=== PATIENT | female | born 1955 | race Caucasian/White ===

== ENCOUNTER 2018-06-30 16:24 | Emergency (ER) | payer BC ==
[2018-06-30 17:06] LABS: Absolute Lymphocytes (CBC) 1.6 K/uL (0.7-4.9); Absolute Monocytes 0.6 K/uL (0.1-1.3); Absolute Neutrophil 5.5 K/uL (1.8-8.0); Basophils % 0.8 % (0-1.3); Eosinophils % 1.9 % (0-4.4); Lymphocytes % 19.8 % (15.3-44.8); MPV 8.7 fL (7.6-11.3); RBC Red Blood Cell Count 4.22 M/uL (3.86-4.86)
[2018-06-30] MEDS ORDERED: NA CHLORIDE 0.9% 1,000 ML ONE ×2 (17:07→18:48)
[2018-06-30 17:24] LABS: ALT/SGPT 28 U/L (12-78); AST/SGOT 22 U/L (15-37); Albumin 4.4 g/dL (3.4-5.0); Alkaline Phosphatase 82 U/L (45-117); BUN Blood Urea Nitrogen 33 mg/dL (7-18); Bicarbonate 24 mmol/L (21-32); Bilirubin Direct 0.1 mg/dL (0-0.2); Bilirubin Total 0.4 mg/dL (0.2-1.0); Glucose Level 96 mg/dL (74-106); Lipase 187 U/L (73-393); Potassium 4.1 mmol/L (3.5-5.1); Protein, Total 7.7 g/dL (6.4-8.2); Sodium Level 140 mmol/L (136-145); Troponin (Emerg Dept Use Only) < 0.02 ng/mL (0.0-0.045)
[2018-06-30 18:05] LABS: Urine Blood TRACE (NEG); Urine Glucose NEGATIVE (NEG); Urine Protein 1+ (NEG); Urine Specific Gravity 1.015 (1.005-1.030); Urine pH 5.5 (5.0-7.0)
[2018-06-30 18:14] LABS: Urine Bacteria <20 /HPF (<20); Urine RBC <5 /HPF (NONE SEEN)
[2018-06-30 18:15] LABS: Calcium Oxalate Crystals- Ur FEW (NONE SEEN); Urine Culture Reflex Order REFLEXED
--- NOTE | 2018-06-30 18:37 | ER ---
Nurse's Notes [facility] Name: Gloria Booker Age: 62 yrs Sex: Female : 1955 Arrival Date: 06/30/2018 Time: 16:26 Bed 6 Private MD: Sanchez Humphreys Diagnosis: Dehydration;Urinary tract infection, site not specified Presentation: 06/30 16:33 Presenting complaint: Patient states: i was going to work today when i felt light hj headed, nauseous and shirt of breath, like im about to faint; denies fall; denies chest pain, denies abd pain;. Transition of care: patient was not received from another setting of care. Onset of symptoms was June 30, 2018. Risk Assessment: Do you want to hurt yourself or someone else? Patient reports no desire to harm self or others. Initial Sepsis Screen: Does the patient meet any 2 criteria? No. Patient's initial sepsis screen is negative. Does the patient have a suspected source of infection? No. Patient's initial sepsis screen is negative. Care prior to arrival: None. 16:33 Method Of Arrival: Ambulatory 16:33 Acuity: SHARON 3 hj Triage Assessment: 16:36 General: Appears in no apparent distress. uncomfortable, Behavior is calm, cooperative, hj appropriate for age. Respiratory: Reports shortness of breath Onset: The symptoms/episode began/occurred today, the patient has mild shortness of breath. Historical: - Allergies: 16:36 Sulfa; hj - Home Meds: 16:36 lisinopril 40 mg oral tab 1 tab once daily [Active]; losartan 50 mg oral tab 1 tab once hj daily [Active]; - PMHx: 16:36 Arthritis; Hypertension; hj - PSHx: 16:36 Appendectomy; rotator cuff; hj - Immunization history:: Adult Immunizations up to date. - Social history:: Smoking status: Patient/guardian denies using tobacco, Patient/guardian denies using alcohol. - Ebola Screening: : Patient negative for fever greater than or equal to 101.5 degrees Fahrenheit, and additional compatible Ebola Virus Disease symptoms Patient denies exposure to infectious person Patient denies travel to an Ebola-affected area in the 21 days before illness onset. - Family history:: not pertinent. - Hospitalizations: : No recent hospitalization is reported. Screenin:36 Abuse screen: Denies threats or abuse. Denies injuries from another. Nutritional hj screening: No deficits noted. Tuberculosis screening: No symptoms or risk factors identified. Fall Risk None identified. Assessment: 16:36 Pain: Denies pain. Cardiovascular: Rhythm is. Respiratory: Airway is patent Respiratory hj effort is even, unlabored, Respiratory pattern is regular, symmetrical, Breath sounds are clear. 16:36 General: Appears in no apparent distress. uncomfortable, Behavior is calm, cooperative, hj appropriate for age. Neuro: Level of Consciousness is awake, alert, obeys commands, Oriented to person, place, time, situation, Appropriate for age. GI: No signs and/or symptoms were reported involving the gastrointestinal system. : No signs and/or symptoms were reported regarding the genitourinary system. EENT: No signs and/or symptoms were reported regarding the EENT system. Derm: No signs and/or symptoms reported regarding the dermatologic system. Musculoskeletal: No signs and/or symptoms reported regarding the musculoskeletal system. 17:43 Reassessment: Patient and/or family updated on plan of care and expected duration. Pain hj level reassessed. Patient is alert, oriented x 3, equal unlabored respirations, skin warm/dry/pink. awaiting results and POC:. 19:05 Reassessment: awaiting for the fluid infusion to consume, then discharge. General: rr5 Appears in no apparent distress. comfortable, Behavior is calm, cooperative, appropriate for age. Neuro: Level of Consciousness is awake, alert, obeys commands, Oriented to person, place, time. Cardiovascular: Capillary refill < 3 seconds Patient's skin is warm and dry. Respiratory: Airway is patent Respiratory effort is even, unlabored, Respiratory pattern is regular, symmetrical. 20:00 Reassessment: Patient appears in no apparent distress at this time. Patient is alert, rr5 oriented x 3, equal unlabored respirations, skin warm/dry/pink. Patient states feeling better. 20:40 Reassessment: Patient appears in no apparent distress at this time. Patient is alert, rr5 oriented x 3, equal unlabored respirations, skin warm/dry/pink. discharge instruction given and explained without complaints made. Vital Signs: 16:37 BP 114 / 63; Pulse 82; Resp 18; Temp 98.0(TE); Pulse Ox 100% on R/A; Weight 129.27 kg; hj Height 5 ft. 6 in. (167.64 cm); Pain 0/10; 17:03 BP 108 / 92; Pulse 85; Resp 18; Pulse Ox 100% on R/A; hj 17:44 BP 100 / 43; Pulse 75; Resp 18; Pulse Ox 100% on R/A; hj 18:01 BP 136 / 67; rn 18:34 BP 123 / 52; Pulse 77; Resp 18; Pulse Ox 100% on R/A; hj 19:05 BP 121 / 62; Pulse 75; Resp 17; Temp 98.1; Pulse Ox 99% on R/A; Pain 0/10; rr5 20:00 BP 133 / 65; Pulse 70; Resp 16; Temp 97.5; Pulse Ox 99% ; Pain 0/10; rr5 20:30 BP 147 / 75; Pulse 79; Resp 17; Temp 97.6; Pulse Ox 100% on R/A; rr5 16:37 Body Mass Index 46.00 (129.27 kg, 167.64 cm) ED Course: 16:26 Patient arrived in ED. as 16:26 Sanchez Humphreys MD is Private Physician. as 16:28 Giorgi Jones RN is Primary Nurse. hj 16:31 Milo Méndez MD is Attending Physician. rn 16:34 Triage completed. hj 16:37 Arm band placed on right wrist. hj 16:37 Patient has correct armband on for positive identification. Placed in gown. Bed in low hj position. Call light in reach. Side rails up X 1. 16:45 Initial lab(s) drawn, by sc, sent to lab. Flu and/or RSV swab sent to lab. Inserted sg saline lock: 20 gauge in right antecubital area, using aseptic technique. Blood collected. 17:00 EKG done, by geospatial technician. reviewed by Milo Méndez MD. sm3 18:35 Sanchez Humphreys MD is Referral Physician. rn 18:55 Inserted saline lock: 20 gauge in right antecubital area, using aseptic technique. hb 20:47 No provider procedures requiring assistance completed. IV discontinued, intact, rr5 bleeding controlled, No redness/swelling at site. Pressure dressing applied. Administered Medications: 16:55 Drug: NS 0.9% 1000 ml Route: IV; Rate: 1000 ml; Site: right antecubital; 18:33 Drug: NS 0.9% 1000 ml Route: IV; Rate: 1000 ml; Site: right antecubital; 20:30 Follow up: Response: No adverse reaction; IV Status: Completed infusion; IV Intake: rr5 1000ml 18:41 Drug: Macrobid 100 mg Route: PO; 20:30 Follow up: Response: No adverse reaction rr5 Intake: 20:30 IV: 1000ml; Total: 1000ml. rr5 Outcome: 18:36 Discharge ordered by . rn 20:47 Discharged to home ambulatory. rr5 20:47 Condition: stable 20:47 Discharge instructions given to patient, Instructed on discharge instructions, follow up and referral plans. medication usage, Demonstrated understanding of instructions, follow-up care, medications, Prescriptions given X 1. 20:49 Patient left the ED. rr5 Signatures: Jayant Coffey RN FRANCE Laura Hays Roman, MD MD rn Joaquin, Henry, RN RN Naya Orlando RN RN Jaye Piper [facility] Naldo Dhillon RN RN rr5 Corrections: (The following items were deleted from the chart) 17:06 17:03 BP 124 / 76; Pulse 85bpm; Resp 18bpm; Pulse Ox 100% RA; [facility]
--- NOTE | 2018-06-30 18:38 | EDPHYS ---
Physician Documentation [facility] Name: Gloria Booker Age: 62 yrs Sex: Female : 1955 Arrival Date: 06/30/2018 Time: 16:26 Bed 6 Private MD: Sanchez Humphreys ED Physician Milo Méndez HPI: 06/30 16:45 This 62 yrs old Female presents to ER via Ambulatory with complaints of rn Shortness Of Breath, Nausea, Weakness. 16:45 Reports generalized weakness and fatigue, began around 11AM today, non-focal, has been rn doing keto diet for 1 week, feels nausea, but no vomiting/diarrhea/chest pain/cough/fever. Reports increased urination, but no pain. [place] a little better after eating nuggets and lemonade. . Onset: The symptoms/episode began/occurred at 11:00. Severity of symptoms: At their worst the symptoms were moderate in the emergency department the symptoms have improved. The patient has not experienced similar symptoms in the past. The patient has not recently seen a physician. Historical: - Allergies: 16:36 Sulfa; hj - Home Meds: 16:36 lisinopril 40 mg oral tab 1 tab once daily [Active]; losartan 50 mg oral tab 1 tab once hj daily [Active]; - PMHx: 16:36 Arthritis; Hypertension; hj - PSHx: 16:36 Appendectomy; rotator cuff; hj - Immunization history:: Adult Immunizations up to date. - Social history:: Smoking status: Patient/guardian denies using tobacco, Patient/guardian denies using alcohol. - Ebola Screening: : Patient negative for fever greater than or equal to 101.5 degrees Fahrenheit, and additional compatible Ebola Virus Disease symptoms Patient denies exposure to infectious person Patient denies travel to an Ebola-affected area in the 21 days before illness onset. - Family history:: not pertinent. - Hospitalizations: : No recent hospitalization is reported. ROS: 16:45 Constitutional: Negative for fever, chills, and weight loss, Eyes: Negative for injury, rn pain, redness, and discharge, ENT: Negative for injury, pain, and discharge, Neck: Negative for injury, pain, and swelling, Cardiovascular: Negative for chest pain, palpitations, and edema, Respiratory: Negative for shortness of breath, cough, wheezing, and pleuritic chest pain, Abdomen/GI: Negative for abdominal pain, vomiting, diarrhea, and constipation, : Negative for injury, bleeding, discharge, and swelling, MS/Extremity: Negative for injury and deformity, Skin: Negative for injury, rash, and discoloration, Neuro: Negative for headache, numbness, tingling, and seizure. Exam: 16:45 Constitutional: This is a well developed, well nourished patient who is awake, alert, rn and in no acute distress. Head/Face: Normocephalic, atraumatic. Eyes: Pupils equal round and reactive to light, extra-ocular motions intact. Lids and lashes normal. Conjunctiva and sclera are non-icteric and not injected. Cornea within normal limits. Periorbital areas with no swelling, redness, or edema. ENT: dry MM Cardiovascular: Regular rate and rhythm. No pulse deficits. Respiratory: Lungs have equal breath sounds bilaterally, clear to auscultation. No increased work of breathing, no retractions or nasal flaring. Abdomen/GI: soft, non-tender MS/ Extremity: Pulses equal, no cyanosis. Neurovascular intact. Full, normal range of motion. Equal circumference. Neuro: Awake and alert, GCS 15, oriented to person, place, time, and situation. Cranial nerves II-XII grossly intact. Motor strength 5/5 in all extremities. Sensory grossly intact. Cerebellar exam normal. 18:33 ECG was reviewed by the Attending Physician. rn Vital Signs: 16:37 BP 114 / 63; Pulse 82; Resp 18; Temp 98.0(TE); Pulse Ox 100% on R/A; Weight 129.27 kg; hj Height 5 ft. 6 in. (167.64 cm); Pain 0/10; 17:03 BP 108 / 92; Pulse 85; Resp 18; Pulse Ox 100% on R/A; hj 17:44 BP 100 / 43; Pulse 75; Resp 18; Pulse Ox 100% on R/A; hj 18:01 BP 136 / 67; rn 18:34 BP 123 / 52; Pulse 77; Resp 18; Pulse Ox 100% on R/A; hj 19:05 BP 121 / 62; Pulse 75; Resp 17; Temp 98.1; Pulse Ox 99% on R/A; Pain 0/10; rr5 20:00 BP 133 / 65; Pulse 70; Resp 16; Temp 97.5; Pulse Ox 99% ; Pain 0/10; rr5 20:30 BP 147 / 75; Pulse 79; Resp 17; Temp 97.6; Pulse Ox 100% on R/A; rr5 16:37 Body Mass Index 46.00 (129.27 kg, 167.64 cm) hj MDM: 16:31 Patient medically screened. rn 18:33 Differential Diagnosis Dehydration, adverse effect of keto diet, UTI. Data reviewed: rn vital signs, nurses notes, lab test result(s), EKG, and as a result, I will discharge patient. 18:34 Response to treatment: the patient's symptoms have markedly improved after treatment, rn and as a result, I will discharge patient. ED course: Ambulatory with improvement of symptoms, will treat for UTI given increased urination and 1+ leukocytes with 5-10 WBC, recommended oral rehydration at home given good response to fluids, and f/u closely within the week for repeat bloodwork by her PCP. Could be due to newly acquired keto diet. She is insistent that she remains on keto diet. . 06/30 16:44 Order name: CBC with Diff; Complete Time: 17:14 rn 06/30 16:44 Order name: Basic Metabolic Panel; Complete Time: 18:01 rn 06/30 16:44 Order name: Urine Microscopic Only; Complete Time: 18:17 rn 06/30 16:44 Order name: Ketone, Serum; Complete Time: 18:01 rn 06/30 16:44 Order name: Troponin (emerg Dept Use Only); Complete Time: 18:01 rn 06/30 16:44 Order name: LFT's; Complete Time: 18:01 rn 06/30 16:44 Order name: EKG; Complete Time: 16:45 rn 06/30 16:44 Order name: Lipase; Complete Time: 18:01 rn 06/30 16:44 Order name: Flu; Complete Time: 17:38 rn 06/30 18:02 Order name: Urine Dipstick--Ancillary (enter results); Complete Time: 18:17 bd 06/30 18:17 Order name: Urine Culture EDWY 06/30 16:44 Order name: IV Start; Complete Time: 17:02 rn 06/30 16:44 Order name: Urine Dipstick-Ancillary (obtain specimen); Complete Time: 18:18 rn 06/30 16:44 Order name: EKG - Nurse/Tech; Complete Time: 17:02 rn EC:33 Rate is 71 beats/min. Rhythm is regular. QRS [place] is Normal. CT interval is normal. QRS rn interval is normal. QT interval is normal. No Q waves. T waves are Normal. No ST changes noted. Clinical impression: Normal ECG. Interpreted by me. Reviewed by me. Administered Medications: 16:55 Drug: NS 0.9% 1000 ml Route: IV; Rate: 1000 ml; Site: right antecubital; hj 18:33 Drug: NS 0.9% 1000 ml Route: IV; Rate: 1000 ml; Site: right antecubital; hj 20:30 Follow up: Response: No adverse reaction; IV Status: Completed infusion; IV Intake: rr5 1000ml 18:41 Drug: Macrobid 100 mg Route: PO; hj 20:30 Follow up: Response: No adverse reaction rr5 Disposition: 06/30/18 18:36 Discharged to Home. Impression: Dehydration, Urinary tract infection, site not specified. - Condition is Stable. - Discharge Instructions: Dehydration, Adult, Urinary Tract Infection, Adult, Acute Kidney Injury, Adult. - Prescriptions for Macrobid 100 mg Oral Capsule - take 1 capsule by ORAL route every 12 hours for 7 days; 14 capsule. - Medication Reconciliation Form, Thank You Letter, Antibiotic Education, Prescription Opioid Use form. - Follow up: Sanchez Humphreys MD; When: 5 - 6 days; Reason: Recheck today's complaints, Re-evaluation by your physician. - Problem is new. - Symptoms have improved. Signatures: Dispatcher [employer] EDMS Milo Méndez MD MD rn Joaquin, Henry, RN RN hj Roque, Raymond RN RN rr5 Corrections: (The following items were deleted from the chart) 20:49 18:36 06/30/2018 18:36 Discharged to Home. Impression: Dehydration; Urinary tract rr5 infection, site not specified. Condition is Stable. Forms are Medication Reconciliation Form, Thank You Letter, Antibiotic Education, Prescription Opioid Use. Follow up: Sanchez Humphreys; When: 5 - 6 days; Reason: Recheck today's complaints, Re-evaluation by your physician. Problem is new. Symptoms have improved. rn
[2018-06-30] MEDS ORDERED: NITROFURAN MACRO 100 MG CAP PO ONE (18:55)
[2018-06-30 21:31] VITALS: BP 147/75; TEMP 97.6; O2SAT 100
--- NOTE | 2018-07-01 06:18 | EKG ---
Test Date: 2018-06-30 Test Time: 17:00:52 Referral Coordinator: ZEESHAN MEASUREMENT RESULTS: Intervals: Rate: 71 WY: 150 QRSD: 92 QT: 428 QTc: 465 [place]: P: 18 WY: 150 QRS: 3 T: 9 INTERPRETIVE STATEMENTS: Normal sinus rhythm with sinus arrhythmia Normal ECG Compared to ECG 04/13/2016 13:39:07 Left ventricular hypertrophy no longer present Electronically Signed On 07-01-18 06:17:22 CDT by London Hunter
== END 2018-06-30 20:49 | disposition home or self-care (01) ==
LOC: ER 16:24
DX: E86.0 Dehydration (principal); N39.0 Urinary tract infection, site not specified; I10 Essential (primary) hypertension; Z88.2 Allergy status to sulfonamides
CPT/HCPCS: 36415; 80048; 80076; 81003; 81015; 82010; 83690; 84484; 85025; 87077; 87086; 87088; 87186; 87804; 93005; 96360; 96361; 99284; J7030

== ENCOUNTER 2018-07-17 19:27 | Observation (INO) | payer BC ==
--- NOTE | 2018-07-17 20:12 | RAD REPORT ---
EXAM DESCRIPTION: RAD - Chest Single View - 07/17/2018 7:56 pm CLINICAL HISTORY: CHEST PAIN Chest pain. COMPARISON: CHEST PA AND LAT 2 VIEW dated 04/03/2011; CHEST PA AND LAT 2 VIEW dated 09/18/2008 FINDINGS: Portable technique limits examination quality. The lungs are grossly clear. The heart is normal in size. No displaced fractures. IMPRESSION: No acute intrathoracic process suspected.
[2018-07-17 20:16] LABS: Absolute Lymphocytes (CBC) 2.1 K/uL (0.7-4.9); Absolute Monocytes 0.5 K/uL (0.1-1.3); Absolute Neutrophil 3.5 K/uL (1.8-8.0); Basophils % 0.8 % (0-1.3); Eosinophils % 4.4 % (0-4.4); Hematocrit 38.2 % (36.0-45.0); Lymphocytes % 33.3 % (15.3-44.8); MPV 9.4 fL (7.6-11.3); Monocytes % 7.5 % (3.3-12.3)
[2018-07-17 20:20] LABS: Protime INR 1.18
[2018-07-17 20:38] LABS: ALT/SGPT 28 U/L (12-78); AST/SGOT 20 U/L (15-37); Alkaline Phosphatase 70 U/L (45-117); BUN Blood Urea Nitrogen 30 mg/dL (7-18); Bicarbonate 23 mmol/L (21-32); Bilirubin Direct 0.1 mg/dL (0-0.2); Bilirubin Total 0.3 mg/dL (0.2-1.0); Glucose Level 78 mg/dL (74-106); Magnesium 2.2 mg/dL (1.8-2.4); NT PRO-BNP 42 pg/mL (<125); Protein, Total 7.5 g/dL (6.4-8.2); Sodium Level 143 mmol/L (136-145); Troponin (Emerg Dept Use Only) < 0.02 ng/mL (0.0-0.045)
[2018-07-17] MEDS ORDERED: ONDANSETRON 4 MG/2 ML VIAL ONE (22:10)
[2018-07-17] MEDS ORDERED: MORPHINE 4 MG/ML SYR ONE (22:10)
--- NOTE | 2018-07-17 23:20 | EDPHYS ---
Physician Documentation [facility] Name: Gloria Booker Age: 62 yrs Sex: Female : 1955 Arrival Date: 07/17/2018 Time: 19:35 Bed 27 Private MD: ED Physician Gera Harp HPI: 07/17 23:09 This 62 yrs old Female presents to ER via Ambulatory with complaints of Arm tw4 Pain. 23:11 The patient or guardian reports chest pain that is located primarily in the anterior tw4 chest wall, left. Onset: today. The pain radiates to the left arm. Associated signs and symptoms: The patient has no apparent associated signs or symptoms. The chest pain is described as dull. Duration: The patient or guardian reports a single episode. Modifying factors: The symptoms are alleviated by nothing. the symptoms are aggravated by nothing. Severity of pain: At its worst the pain was moderate in the emergency department the pain is unchanged. The patient has not experienced similar symptoms in the past. Historical: - Allergies: 19:37 Sulfa; aj - Home Meds: 07/18 00:27 lisinopril 40 mg Oral tab 1 tab once daily for Hypertension [Active]; losartan 50 mg jd3 Oral tab 1 tab once daily [Active]; - PMHx: 00:27 Arthritis; Hypertension; jd3 - PSHx: 00:27 Appendectomy; rotator cuff; jd3 - Immunization history:: Adult Immunizations up to date. - Social history:: Smoking status: unknown. - Ebola Screening: : Patient negative for fever greater than or equal to 101.5 degrees Fahrenheit, and additional compatible Ebola Virus Disease symptoms. ROS: 07/17 23:11 Constitutional: Negative for fever, chills, and weight loss, Eyes: Negative for injury, tw4 pain, redness, and discharge, Respiratory: Negative for shortness of breath, cough, wheezing, and pleuritic chest pain, Abdomen/GI: Negative for abdominal pain, nausea, vomiting, diarrhea, and constipation, Back: Negative for injury and pain, MS/Extremity: Negative for injury and deformity, Skin: Negative for injury, rash, and discoloration. Cardiovascular: Positive for chest pain, Negative for edema, orthopnea, palpitations, paroxysmal nocturnal dyspnea. Exam: 23:11 Constitutional: This is a well developed, well nourished patient who is awake, alert, tw4 and in no acute distress. Head/Face: Normocephalic, atraumatic. Chest/axilla: Normal chest wall appearance and motion. Nontender with no deformity. No lesions are appreciated. Cardiovascular: Regular rate and rhythm with a normal S1 and S2. No gallops, murmurs, or rubs. Normal PMI, no JVD. No pulse deficits. Respiratory: Lungs have equal breath sounds bilaterally, clear to auscultation and percussion. No rales, rhonchi or wheezes noted. No increased work of breathing, no retractions or nasal flaring. Abdomen/GI: Soft, non-tender, with normal bowel sounds. No distension or tympany. No guarding or rebound. No evidence of tenderness throughout. Back: No spinal tenderness. No costovertebral tenderness. Full range of motion. Skin: Warm, dry with normal turgor. Normal color with no rashes, no lesions, and no evidence of cellulitis. MS/ Extremity: Pulses equal, no cyanosis. Neurovascular intact. Full, normal range of motion. Neuro: Awake and alert, GCS 15, oriented to person, place, time, and situation. Cranial nerves II-XII grossly intact. Motor strength 5/5 in all extremities. Sensory grossly intact. Cerebellar exam normal. Normal gait. Vital Signs: 19:37 BP 142 / 71; Pulse 70; Resp 18; Temp 98.0; Pulse Ox 99% on R/A; Weight 105.69 kg; aj Height 5 ft. 6 in. (167.64 cm); 20:18 BP 114 / 59; Pulse 63; Resp 14 S; Pulse Ox 99% on R/A; Pain 5/10; jd3 21:24 BP 122 / 53; Pulse 66; Resp 14 S; Pulse Ox 100% on R/A; jd3 22:40 BP 116 / 51; Pulse 62; Resp 17 S; Pulse Ox 100% on R/A; Pain 0/10; jd3 23:51 BP 110 / 53; Pulse 62; Resp 13 S; Pulse Ox 100% on R/A; jd3 19:37 Body Mass Index 37.61 (105.69 kg, 167.64 cm) aj MDM: 19:35 Patient medically screened. tw4 23:11 Differential diagnosis: acute myocardial infarction, acute pericarditis, anxiety, chest tw4 wall pain, pneumonia, pneumothorax, pulmonary embolus, stable angina, thoracic aortic disection. HEART Score: History: Moderately Suspicious (1), ECG: Normal (0), Age: > 45 and < 65 years (1), Risk Factors: No Risk Factors Known (0), Troponin: < or = 1 x Normal Limit (0). The patient was given aspirin in the Emergency Department. Data reviewed: vital signs, nurses notes. Data interpreted: Pulse oximetry: Interpretation: normal. Test interpretation: by ED physician or midlevel provider: ECG, plain radiologic studies. Counseling: I had a detailed discussion with the patient and/or guardian regarding: the historical points, exam findings, and any diagnostic results supporting the discharge/admit diagnosis, lab results, radiology results. Medication response: morphine markedly relieved the patient's pain. Symptoms have improved. Response to treatment: and as a result, I will admit patient. Physician consultation: Haleigh Mendoza MD was called at 22:30, and will see patient. 07/17 19:35 Order name: Basic Metabolic Panel; Complete Time: 23:08 [facility] 07/17 23:08 Interpretation: Normal except: CL 110; BUN 30; GFR 46. 07/17 19:35 Order name: CBC with Diff; Complete Time: 23:08 [facility] 07/17 23:08 Interpretation: Within normal limits. 07/17 19:35 Order name: LFT's; Complete Time: 23:08 [facility] 07/17 23:08 Interpretation: Within normal limits. 07/17 19:35 Order name: Magnesium; Complete Time: 23:08 [facility] 07/17 19:35 Order name: NT PRO-BNP; Complete Time: 23:08 [facility] 07/17 23:08 Interpretation: Within normal limits: NT PRO-BNP 42. 07/17 19:35 Order name: PT-INR; Complete Time: 23:08 [facility] 07/17 23:08 Interpretation: Normal except: PT 13.8. 07/17 19:35 Order name: Troponin (emerg Dept Use Only); Complete Time: 23:09 [facility] 07/17 23:09 Interpretation: Within normal limits: TROPED < 0.02. 07/17 19:35 Order name: XRAY Chest (1 view); Complete Time: 23:09 [facility] 07/17 23:09 Interpretation: No acute disease. tw4 07/17 20:11 Order name: CT Chest For PE Angio tw4 07/18 00:09 Order name: Echo with Doppler EDDE 07/18 00:10 Order name: Lipid Profile EDDE 07/18 00:10 Order name: Troponin I EDDE 07/17 19:35 Order name: EKG; Complete Time: 19:36 [facility] 07/17 19:35 Order name: Cardiac monitoring; Complete Time: 20:03 [facility] 07/17 19:35 Order name: EKG - Nurse/Tech; Complete Time: 20:03 [facility] 07/17 19:35 Order name: IV Saline Lock; Complete Time: 20:03 [facility] 07/17 19:35 Order name: Labs collected and sent; Complete Time: 20:03 d3 07/17 19:35 Order name: O2 Per Protocol; Complete Time: 20:03 [facility] 07/17 19:35 Order name: O2 Sat Monitoring; Complete Time: 20:03 [facility] 07/18 00:09 Order name: CONS Physician Consult EDDE 07/18 00:09 Order name: Heart Healthy EDDE 07/18 00:10 Order name: EKG Electrocardiogram EDDE 07/18 00:10 Order name: EKG Electrocardiogram [facility] EC:30 Rate is 66 beats/min. Rhythm is regular. QRS Ida is Normal. WA interval is normal. QRS tw4 interval is normal. QT interval is normal. No Q waves. T waves are Normal. No ST changes noted. Clinical impression: Normal ECG. Interpreted by me. Reviewed by me. Administered Medications: 22:10 Drug: morphine 4 mg Route: IVP; Site: right antecubital; jd3 23:10 Follow up: Response: No adverse reaction; Pain is decreased jd3 22:10 Drug: Zofran 4 mg Route: IVP; Site: right antecubital; jd3 23:10 Follow up: Response: No adverse reaction jd3 Disposition: 07/17/18 23:19 Hospitalization ordered by Haleigh Mendoza for Inpatient Admission. Preliminary diagnosis is Chest pain, unspecified. - Bed requested for Telemetry/MedSurg (Inpatient). - Status is Inpatient Admission. jd3 - Condition is Stable. - Problem is new. - Symptoms have improved. UTI on Admission? No Signatures: Dispatcher [employer] EDMS Sandy Lopez, RN RN dw Zina Ramos RN RN Feroz Tay RN RN jd3 Gera Harp MD MD tw4 Corrections: (The following items were deleted from the chart) 07/18 00:12 07/17 23:19 Hospitalization Ordered by Haleigh Mendoza MD for Inpatient Admission. dw Preliminary diagnosis is Chest pain, unspecified. Bed requested for Telemetry/MedSurg (Inpatient). Status is Inpatient Admission. Condition is Stable. Problem is new. Symptoms have improved. UTI on Admission? No. tw4 07/18 00:39 00:12 07/17/2018 23:19 Hospitalization Ordered by Haleigh Mendoza MD for Inpatient jd3 Admission. Preliminary diagnosis is Chest pain, unspecified. Bed requested for Telemetry/MedSurg (Inpatient). Status is Inpatient Admission. Condition is Stable. Problem is new. Symptoms have improved. UTI on Admission? No. dw
--- NOTE | 2018-07-17 23:20 | ER ---
Nurse's Notes [facility] Name: Gloria Booker Age: 62 yrs Sex: Female : 1955 Arrival Date: 07/17/2018 Time: 19:35 Bed 27 Private MD: Diagnosis: Chest pain, unspecified Presentation: 07/17 19:36 Presenting complaint: Patient states: Chest pain with SOB and diaphoresis since this aj AM. Reports pain radiates to left arm. Transition of care: patient was not received from another setting of care. Onset of symptoms was July 17, 2018. Risk Assessment: Do you want to hurt yourself or someone else? Patient reports no desire to harm self or others. Initial Sepsis Screen: Does the patient meet any 2 criteria? No. Patient's initial sepsis screen is negative. Does the patient have a suspected source of infection? No. Patient's initial sepsis screen is negative. Care prior to arrival: None. 19:36 Method Of Arrival: Ambulatory aj 19:36 Acuity: SHARON 2 aj Triage Assessment: 19:37 General: Appears in no apparent distress. comfortable, Behavior is calm, cooperative, aj appropriate for age. Pain: Complains of pain in chest and left arm. Cardiovascular: Reports chest pain, diaphoresis, lightheadedness, shortness of breath. Respiratory: Airway is patent Respiratory effort is even, unlabored, Respiratory pattern is regular, symmetrical. Derm: Skin is intact, is healthy with good turgor, Skin is pink, warm \T\ dry. normal. Historical: - Allergies: 19:37 Sulfa; aj - Home Meds: 07/18 00:27 lisinopril 40 mg Oral tab 1 tab once daily for Hypertension [Active]; losartan 50 mg jd3 Oral tab 1 tab once daily [Active]; - PMHx: 00:27 Arthritis; Hypertension; jd3 - PSHx: 00:27 Appendectomy; rotator cuff; jd3 - Immunization history:: Adult Immunizations up to date. - Social history:: Smoking status: unknown. - Ebola Screening: : Patient negative for fever greater than or equal to 101.5 degrees Fahrenheit, and additional compatible Ebola Virus Disease symptoms. Screenin/06 20:17 Abuse screen: Denies threats or abuse. Nutritional screening: No deficits noted. jd3 Tuberculosis screening: No symptoms or risk factors identified. Fall Risk None identified. Assessment: 20:13 General: Appears uncomfortable, Behavior is calm, cooperative, appropriate for age, jd3 Reports fatigue for with exertion. Pain: Complains of pain in chest Pain radiates to back and left arm Quality of pain is described as radiating, sharp. Neuro: Level of Consciousness is awake, alert, obeys commands, Oriented to person, place, time, situation. Cardiovascular: Reports chest pain, Heart tones S1 S2 present Capillary refill < 3 seconds Patient's skin is warm and dry. Respiratory: Reports shortness of breath on exertion Airway is patent Respiratory effort is even, unlabored, Respiratory pattern is regular, symmetrical, Breath sounds are clear bilaterally. GI: Abdomen is round non-distended, Bowel sounds present X 4 quads. Abd is soft and non tender X 4 quads. Reports nausea prior to arrival. Patient currently denies vomiting. : No signs and/or symptoms were reported regarding the genitourinary system. EENT: No signs and/or symptoms were reported regarding the EENT system. Derm: Skin is intact, Skin is dry, Skin is normal, Skin temperature is warm. Musculoskeletal: Circulation, motion, and sensation intact. Range of motion: intact in all extremities. 21:24 Reassessment: Patient appears in no apparent distress at this time. No changes from jd3 previously documented assessment. Patient and/or family updated on plan of care and expected duration. Pain level reassessed. Patient is alert, oriented x 3, equal unlabored respirations, skin warm/dry/pink. 22:40 Reassessment: Patient appears in no apparent distress at this time. Patient and/or jd3 family updated on plan of care and expected duration. Pain level reassessed. Patient is alert, oriented x 3, equal unlabored respirations, skin warm/dry/pink. Patient states feeling better. 23:51 Reassessment: Patient appears in no apparent distress at this time. Patient and/or jd3 family updated on plan of care and expected duration. Pain level reassessed. Patient is alert, oriented x 3, equal unlabored respirations, skin warm/dry/pink. 07/18 00:38 Reassessment: Patient appears in no apparent distress at this time. Patient and/or jd3 family updated on plan of care and expected duration. Pain level reassessed. Patient is alert, oriented x 3, equal unlabored respirations, skin warm/dry/pink. report given to Angle HOUGH. pt transported to room with wheelchair with building techfernando Cabello. Vital Signs: 07/17 19:37 BP 142 / 71; Pulse 70; Resp 18; Temp 98.0; Pulse Ox 99% on R/A; Weight 105.69 kg; aj Height 5 ft. 6 in. (167.64 cm); 20:18 BP 114 / 59; Pulse 63; Resp 14 S; Pulse Ox 99% on R/A; Pain 5/10; jd3 21:24 BP 122 / 53; Pulse 66; Resp 14 S; Pulse Ox 100% on R/A; jd3 22:40 BP 116 / 51; Pulse 62; Resp 17 S; Pulse Ox 100% on R/A; Pain 0/10; jd3 23:51 BP 110 / 53; Pulse 62; Resp 13 S; Pulse Ox 100% on R/A; jd3 19:37 Body Mass Index 37.61 (105.69 kg, 167.64 cm) aj ED Course: 19:35 Patient arrived in ED. ag3 19:35 Gera Harp MD is Attending Physician. tw4 19:36 Triage completed. aj 19:37 Arm band placed on left wrist. Patient placed in an exam room. EKG completed in triage. aj Results shown to MD. 19:55 XRAY Chest (1 view) In Process Unspecified. EDMS 20:04 Initial lab(s) drawn, by me, sent to lab. EKG done, by ED staff. Inserted saline lock: lt1 20 gauge in right antecubital area, using aseptic technique. 20:13 Feroz Rai, RN is Primary Nurse. jd3 20:14 Radiology exam delayed due to lab results not completed at this time. (BUN/Creatinine). vm2 20:16 Patient has correct armband on for positive identification. Placed in gown. Bed in low jd3 position. Call light in reach. Side rails up X 1. Adult w/ patient. 20:36 Radiology exam delayed due to lab results not completed at this time. (BUN/Creatinine). vm2 20:[address] nj 21:26 CT Chest For PE Angio In Process Unspecified. EDMS 23:19 Haleigh Mendoza MD is Hospitalizing Provider. tw4 07/18 00:27 No provider procedures requiring assistance completed. Patient admitted, IV remains in jd3 place. Administered Medications: 07/17 22:10 Drug: morphine 4 mg Route: IVP; Site: right antecubital; jd3 23:10 Follow up: Response: No adverse reaction; Pain is decreased jd3 22:10 Drug: Zofran 4 mg Route: IVP; Site: right antecubital; jd3 23:10 Follow up: Response: No adverse reaction j Outcome: 23:19 Decision to Hospitalize by Provider. tw4 07/18 00:28 Admitted to Tele accompanied by tech, via stretcher, room 429, with chart, Report jd3 called to Angle HOUGH Condition: stable Instructed on the need for admit, Demonstrated understanding of instructions. 00:39 Patient left the ED. j Signatures: Dispatcher [employer] Zina Mckinley, RN RN Stan Aaron [facility] Feroz Rai RN RN jd3 Wadley, Terrence, MD MD tw4 Minnie Bryan 3 Destiney Person 1
[2018-07-17] MEDS ORDERED: ACETAMINOPHEN 500 MG TAB PO PRN (23:57)
[2018-07-17] MEDS ORDERED: ALPRAZOLAM 0.25 MG TABLET PO PRN (23:57)
[2018-07-18] MEDS: MORPHINE 4 MG/ML SYR IV PRN ×2 (01:41→08:31)
[2018-07-18] MEDS ORDERED: ONDANSETRON 4 MG/2 ML VIAL IV PRN (01:47)
[2018-07-18 04:40] VITALS: BMI 37.5
[2018-07-18 06:40] LABS: C-Reactive Protein 3.21 mg/L (<3.00); Creatine Phosphokinase 58 U/L (26-192); Folic Acid, (Folate) 15.9 ng/mL (3.1-17.5); Troponin I < 0.02 ng/mL (0.0-0.045)
--- NOTE | 2018-07-18 07:16 | EKG ---
Test Date: 2018-07-17 Test Time: 19:41:42 Director Regulatory Compliance: SABAST MEASUREMENT RESULTS: Intervals: Rate: 66 [place]: 152 QRSD: 96 QT: 420 QTc: 440 [place]: P: 33 NJ: 152 QRS: 15 T: 44 INTERPRETIVE STATEMENTS: Normal sinus rhythm Normal ECG Compared to ECG 06/30/2018 17:00:52 Sinus arrhythmia no longer present Electronically Signed On 07-18-18 07:15:31 CDT by Ryan Nguyen
[2018-07-18] MEDS ORDERED: METOPROLOL TAR 50 MG TAB PO SCH (09:00)
[2018-07-18] MEDS ORDERED: ASPIRIN EC 81 MG TAB PO SCH (09:00)
[2018-07-18] MEDS ORDERED: ENOXAPARIN 40 MG/0.4 ML SQ SCH (09:00)
--- NOTE | 2018-07-18 09:56 | P.HP ---
Certification for Inpatient Patient admitted to: Observation With expected LOS: <2 Midnights Patient will require the following post-hospital care: None Practitioner: I am a practitioner with admitting privileges, knowledge of patient current condition, hospital course, and medical plan of care. Services: Services provided to patient in accordance with Admission requirements found in Title 42 Section 412.3 of the Code of Federal Regulations Patient History Date of Service: 07/18/18 Reason for admission: Generalized weakness and fatigue / chest pain/ new onset CHF History of Present Illness: Patient is a 62-year-old female who comes into the hospital with complaints of chest pain and shortness of breath. Patient's sister is also with her and says she has been really fatigued and gets short-winded really quickly. This is a new symptom and just started over the last few months. Patient saw her arc air operator this Saturday and a Holter monitor was placed. There was concern for an arrhythmia which she thinks was called atrial fibrillation. Patient was given carvedilol. Patient also had a stress test and echocardiogram on Saturday of this week. She states the stress test was negative but the echocardiogram revealed that her heart muscle was "weak". We talked more about this and she said that she was told it was pumping at 40-45% when should be pumping at around 60%. This could explain why she has been fatigued and short winded as she has new onset congestive heart failure. However, she has not been given a diuretic. I think we need to try to get the records or repeat our own echocardiogram and get a Cardiology consultation. If she does have congestive heart failure the most common cause would be ischemia and she may need a coronary angiogram even if the stress test has been negative. Patient needs to get workup regarding what may be causing her congestive heart failure. At this time will await cardiology consultation and we will put her in for observation. If her workup reveals anything more significant than at that point we can convert her into an inpatient hospitalization stay. Allergies Sulfa (Sulfonamide Antibiotics) [Sulfa(Sulfonamide Antibiotics)] Allergy (Mild, Verified 07/18/18 04:12) Hives Home Medications: Lisinopril [Prinivil] 40 mg PO BEDTIME 03/01/16 Loratadine [Claritin] 10 mg PO DAILY 03/01/16 Aspirin Chewable [Aspirin Chewable*] 1 tab PO DAILY 07/18/18 Carvedilol [Coreg*] 1 tab PO BID 07/18/18 Fluticasone [Flonase 50MCG Nasal [place]*] 1 spray IH DAILY 07/18/18 Lovastatin 1 tab PO BEDTIME 07/18/18 - Past Medical/Surgical History Has patient received pneumonia vaccine in the past: No Diabetic: No -: Arthritis -: HTN -: Appendectomy -: Rotator cuff sx - Family History Father Family History: Reviewed- Non-Contributory - Social History Smoking Status: Never smoker Alcohol use: No CD- Drugs: No Caffeine use: No Place of Residence: Home Review of Systems 10-point ROS is otherwise unremarkable Physical Examination - Vital Signs Temperature: 97.4 F Blood Pressure: 111/53 Pulse: 56 Respirations: 16 Pulse Ox (%): 99 - Physical Exam General: Alert, In no apparent distress, Oriented x3 HEENT: Atraumatic, PERRLA, Mucous membr. moist/pink, EOMI, Sclerae nonicteric Neck: Supple, 2+ carotid pulse no bruit, No LAD, Without JVD or thyroid abnormality Respiratory: Crackles/rales Cardiovascular: Regular rate/rhythm, Normal S1 S2, Systolic murmur Gastrointestinal: Normal bowel sounds, Soft and benign, Non-distended, No tenderness Musculoskeletal: No clubbing, No swelling, No tenderness Integumentary: No rashes Neurological: Normal gait, Normal speech, Normal tone, Sensation intact, Cranial nerves 3-12 intact, Normal affect, Abnormal strength (4/5) Lymphatics: No axilla or inguinal lymphadenopathy - Studies Laboratory Data (last 24 hrs) 07/17/18 20:02: PT 13.8 H, INR 1.18 07/17/18 20:02: WBC 6.4, Hgb 12.6, Hct 38.2, Plt Count 177 07/17/18 20:02: Sodium 143, Potassium 4.0, BUN 30 H, Creatinine 1.19, Glucose 78 , Magnesium 2.2, Total Bilirubin 0.3, AST 20, ALT 28, Alkaline Phosphatase 70 Assessment & Plan - Problems (Diagnosis) (1) Dyspnea Current Visit: Yes Status: Acute (2) Fatigue Current Visit: Yes Status: Acute (3) Generalized weakness Current Visit: Yes Status: Acute (4) Chest pain Current Visit: Yes Status: Acute (5) Systolic CHF, acute Current Visit: Yes Status: Acute - Plan -Hep-Lock IV -check thyroid studies and cortisol studies -repeat Echocardiogram -Cardiology consultation -may need to add Lasix; pending echo -Daily weights -Education regarding diet and treatment of congestive heart failure -physical therapy evaluation Discharge Plan: Home Plan to discharge in: 48 Hours - Advance Directives Does patient have a Living Will: No Does patient have a Durable POA for Healthcare: No - Code Status/Comfort Care Code Status Assessed: Yes Code Status: Full Code Critical Care: No Time Spent Managing PTS Care (In Minutes): 40
[2018-07-18 10:41] VITALS: O2SAT 99
--- NOTE | 2018-07-18 10:43 | RAD REPORT ---
EXAM DESCRIPTION: CT CHEST ANGIOGRAPHY WITH IV CONTRAST CLINICAL HISTORY: Shortness of breath. COMPARISON: None. TECHNIQUE: CT angiogram of the chest with IV contrast. 3-D MIP images were obtained in coronal and s agittal reconstructions. This exam was performed according to our departmental dose-optimization prog adam, which includes automated exposure control, adjustment of the mA and/or kV according to patient s ize and/or use of iterative reconstruction technique. FINDINGS: No filling defects are identified in the pulmonary trunk, main left and right pulmonary ar teries, or the segmental branches. The thoracic aorta is normal in caliber. The thyroid gland is normal. No mediastinal or hilar adenopathy. The heart size is normal without per icardial effusion. The thoracic aorta is normal caliber. No consolidation, pleural effusion, or pneum othorax is identified. The visualized upper abdomen demonstrates no acute findings. No acute osseous findings are seen. IMPRESSION: No acute pulmonary embolism. Electronically signed by: Fawad Lo MD 07/17/2018 9:58 PM CDT Due to temporary technical issues with the PACS/Fluency reporting system, reports are being signed by the in house radiologist as a courtesy to ensure prompt reporting. The interpreting radiologist is f ully responsible for the content of the report.
[2018-07-18] MEDS: IBUPROFEN 400 MG TAB PO PRN ×2 (12:17→17:42)
--- NOTE | 2018-07-18 12:29 | CON ---
Date of Consultation: 07/18/2018 Reason For Consultation: Atypical chest pain. History Of Present Illness: Ms. Booker is a 62-year-old white woman. She is a patient of Dr. Sanchez lemus. She also has seen Dr. Valencia recently and has had a stress test which was negative 3 days ago . She had an echocardiogram apparently that showed an ejection fraction of 45%. She was recently st arted on carvedilol. She also takes Prinivil. She has a history of dyslipidemia as well. Has a his tory of arthritis. She does not smoke. Does not have diabetes. She has a family history of heart d isease. She came in with atypical upper left chest, shoulder pain that is worse with inspiration, bu t also has symptoms of weakness, shortness of breath with exertion. Her weakness is in her arms and her legs. Also, has episodes of diaphoresis. Denied nausea or vomiting. Denied any PND, orthopnea, pedal edema, palpitations, or syncope. Past Medical History: As stated above. Allergies: TO SULFA. Review of Systems: Negative. Social History: Negative for tobacco. Family History: Positive for heart disease. Medications: Include Prinivil, Claritin, meloxicam, carvedilol 6.25 b.i.d., and a statin. She does not know which one it is. Physical Examination: General: She was rather anxious. Vital Signs: Blood pressure was 90/51. She weighed 233 pounds. She was in sinus rhythm. HEENT: Negative. Neck: Supple. No bruit, lymphadenopathy, JVD, or thyromegaly. Chest: Clear to auscultation and percussion. Cardiac: Revealed a regular rhythm and rate. No murmurs, gallops, or rubs. Abdomen: Benign. Extremities: Revealed no clubbing, cyanosis, or edema. Diagnostic Data: All normal. Impression And Plan: Atypical chest pain, definitely pleuritic in nature. No need to repeat a stres s test which was done a week ago and was normal. There is another echocardiogram pending to see what her ejection fraction is. I think she has chronic systolic congestive heart failure, which may be c ausing all her symptoms. I think if her symptoms persist despite medical therapy, left heart cathete rization would be indicated then. We can certainly decide that as an outpatient when she sees Dr. Paredes in the future. I agree with the treatment of Prinivil, although we can cut down the dose from 40 mg to 20 mg daily. I will continue the carvedilol and her statin. I think her symptoms of weakne ss may be a good indication for a carotid Doppler which Dr. Valencia has planned to do as an outpatien t, but she wants to have it done in the hospital while she is here. I will order that as well. Her blood pressure is well controlled. Her cholesterol is well controlled. We will see what the echo on the carotid shows prior to making final decisions. CARL/CHANNING Voice ID: [id number] Report ID: [id number]
--- NOTE | 2018-07-18 16:05 | RAD REPORT ---
EXAM DESCRIPTION: USCarotid Artery Bilateral07/18/2018 3:56 pm CLINICAL HISTORY: Carotid disease COMPARISON: None FINDINGS: The velocity of the right internal carotid artery equals 129 cm/sec. The right ICA/CCA rat io 1.3 The velocity of the left internal carotid artery equals 92 cm/sec. The left ICA/CCA ratio 1.2 Mild plaque is present within the carotid arteries. The vertebral arteries demonstrate antegrade flow IMPRESSION: Mild plaque within the carotid arteries without evidence of a hemodynamically significan t stenosis NASCET criteria used. Mild 0-49% stenosis Moderate 50-69% stenosis Severe 70-99% stenosis
[2018-07-18 16:32] VITALS: BP 108/49; TEMP 97
--- NOTE | 2018-07-21 10:04 | ECHO ---
HEIGHT: 5 ft 6 in WEIGHT: 233 lb 0.105 oz DATE OF STUDY: 07/21/[address]: Haleigh Mendoza MD 2-DIMENSIONAL: YES M.MODE: YES DOPPLER: YES COLOR FLOW: YES TDS: NO PORTABLE: NO DEFINITY: NO BUBBLE STUDY: NO DIAGNOSIS: CHEST PAIN RULE OUT ACUTE CORONARY SYNDROME CARDIAC HISTORY: CATHERIZATION: NO SURGERY: NO PROSTHETIC VALVE: NO PACEMAKER: NO MEASUREMENTS (cm) DIASTOLIC (NORMALS) SYSTOLIC (NORMALS) IVSd 1.0 (0.6-1.2) LA Diam 3.4 (1.9-4.0) LVEF 57% LVIDd 4.6 (3.5-5.7) LVIDs 3.2 (2.0-3.5) %FS 30% LVPWd 1.1 (0.6-1.2) Ao Diam 2.6 (2.0-3.7) 2 DIMENSIONAL ASSESSMENT: RIGHT ATRIUM: NORMAL LEFT ATRIUM: NORMAL RIGHT VENTRICLE: NORMAL LEFT VENTRICLE: NORMAL TRICUSPID VALVE: NORMAL MITRAL VALVE: NORMAL PULMONIC VALVE: NORMAL AORTIC VALVE: NORMAL PERICARDIAL EFFUSION: NONE AORTIC ROOT: NORMAL LEFT VENTRICULAR WALL MOTION: NORMAL. DOPPLER/COLOR FLOW: NORMAL. COMMENTS: NORMAL 2D ECHOCARDIOGRAM WITH DOPPLER. NO WALL MOTION ABNORMALITIES. NO EFFUSION. TECHNOLOGIST: SG SOUSA RDCS
== END 2018-07-18 19:10 | disposition home or self-care (01) ==
LOC: ER 19:27 → 4TH 07-18 00:33
PROVIDERS: ADMIT Hospitalist; ATTEND Family Medicine
DX: R07.89 Other chest pain (principal); R06.00 Dyspnea, unspecified; R53.83 Other fatigue; R53.1 Weakness; I65.23 Occlusion and stenosis of bilateral carotid arteries; Z82.49 Family history of ischemic heart disease and other diseases of the circulatory system; E78.5 Hyperlipidemia, unspecified; M19.90 Unspecified osteoarthritis, unspecified site; Z79.82 Long term (current) use of aspirin; Z79.899 Other long term (current) drug therapy
CPT/HCPCS: 36415; 71045; 71275; 80048; 80061; 80076; 82533; 82550; 82607; 82746; 83540; 83735; 83880; 84439; 84443; 84484; 85025; 85610; 85652; 86140; 93005; 93306; 93880; 96374; 96375; 99285; G0378; J1650; J2405; Q9967

== ENCOUNTER 2019-05-03 16:05 | Emergency (ER) | payer BC ==
--- OUTSIDE RECORDS SUMMARY | 2019-05-03 16:07 | XMS REPORT ---
:1955 [facility] Address [address] [place] [address] Care Team Providers Name Role Phone Unavailable Unavailable Unavailable Payers Payer Name Policy Type Policy Number Effective Date Expiration Date Problems This patient has no known problems. Allergies, Adverse Reactions, Alerts This patient has no known allergies or adverse reactions. Medications This patient has no known medications. Results Test Description Test Time Test Comments Text Results Atomic Results Result Comments BASIC METABOLIC PANEL 2018-09-02 12:16:00 Test Item Value Reference Range Comments SODIUM (test code=NA) 141 MMOL/L 137-145 POTASSIUM (test code=K) 4.4 MMOL/L 3.5-5.1 CHLORIDE (test code=CL) 105 MMOL/L 98-107 CARBON DIOXIDE (test code=CO2) 25 MMOL/L 22-30 GLUCOSE (test code=GLU) 104 MG/DL 74-106 BLOOD UREA NITROGEN (test 34 MG/DL 7-17 code=BUN) GLOMERULAR FILTRATION RATE (test 45 Reporting units: ml/min/1.73 m2 code=GFR) (Modified MDRD Formula)Reference Range: > or=60 ml/min/1.73 m2 CREATININE (test code=CREAT) 1.20 MG/DL 0.52-1.04 CALCIUM (test code=CA) 10.6 MG/DL 8.4-10.2 [id number] 12:16:00 Test Item Value Reference Range Comments MAGNESIUM (test code=MAG) 2.0 MG/DL 1.6-2.3 PROTHROMBIN [id number] 12:05:00 Test Item Value Reference Range Comments PROTHROMBIN TIME PATIENT (test 10.7 SECONDS 9.6-11.6 code=PTP) INTERNATIONAL NORMAL RATIO 1.0 0.8-1.1 The INR is to be used only (test code=INR) for monitoring oral anticoagulanttherapy. INDICATION INR VALUE 1. Prophylaxis, deep venous thrombosis, including high risk surgery. 2.0 - 3.0 2. Prophylaxis, deep venous thrombosis, hip surgery, treatment for deep venous thrombosis or pulmonary prevention of systemic embolism in patients with valvular heart disease, atrial fibrillation, tissue heart valve, or acute myocardial infarction. 2.0 - 3.0 3. Mechanical prosthesis heart valves, recurrent systemic embolism. 3.0 - 4.5 Comments to [place] Compounder: WILL BRING TO THE LABPTT [id number] 12:05:00 Test Item Value Reference Range Comments PTT ACTIVATED (test code=APTT) 30.2 SECONDS 22.0-33.0 Comments to [place] Compounder: WILL BRING TO THE L[facility] W/AUTO [id number] 11:50: 00 Test Item Value Reference Range Comments WHITE BLOOD CELL (test code=WBC) 5.1 K/MM3 3.8-9.8 RED BLOOD CELL (test code=RBC) 3.84 M/MM3 3.58-4.97 HEMOGLOBIN (test code=HGB) 11.9 G/DL 11.2-14.9 HEMATOCRIT (test code=HCT) 35.7 % 33.2-43.5 MEAN CELL VOLUME (test code=MCV) 93 fL 80.7-99.1 MEAN CELL HGB (test code=MCH) 31.0 pg 27.0-34.1 MEAN CELL HGB CONCETRATION (test code=MCHC) 33.3 % 32.2-35.7 RED CELL DISTRIBUTION WIDTH (test code=RDW) 13.9 % 12.1-15.2 PLATELET COUNT (test code=PLT) 156 K/MM3 129-368 MEAN PLATELET VOLUME (test code=MPV) 10.5 fl 7.4-10.4 NEUTROPHIL % (test code=NT%) 44.3 % 43-75 IMMATURE GRANULOCYTE % (test code=IG%) 0.4 % 0.0-2.0 LYMPHOCYTE % (test code=LY%) 35.9 % 14-44 MONOCYTE % (test code=MO%) 10.6 % 4-13 EOSINOPHIL % (test code=EO%) 8.0 % 0-6 BASOPHIL % (test code=BA%) 0.8 % 0-2 NUCLEATED RBC % (test code=NRBC%) 0.0 % 0-1.0 NEUTROPHIL # (test code=NT#) 2.26 K/mm3 2.0-7.6 IMMATURE GRANULOCYTE # (test code=IG#) 0.02 x10 3/uL 0-0.03 LYMPHOCYTE # (test code=LY#) 1.83 K/mm3 1.0-3.8 MONOCYTE # (test code=MO#) 0.54 K/mm3 0.1-0.8 EOSINOPHIL # (test code=EO#) 0.41 K/mm3 0.0-0.2 BASOPHIL # (test code=BA#) 0.04 K/mm3 0.0-0.2 NUCLEATED RBC # (test code=NRBC#) 0.00 K/mm3 0.0-0.1
--- NOTE | 2019-05-03 17:22 | EDPHYS ---
Physician Documentation [facility] Name: Gloria Booker Age: 63 yrs Sex: Female : 1955 Arrival Date: 05/03/2019 Time: 16:08 Bed 6 Private MD: Sanchez Humphreys ED Physician Kervin Talbert HPI: 05/02 17:16 This 63 yrs old Female presents to ER via Ambulatory with complaints of kb Urinary Problem. 17:16 The patient presents with urinary symptoms, dysuria, frequency, vaginal itching. Onset: kb The symptoms/episode began/occurred 2 week(s) ago. Modifying factors: The symptoms are alleviated by nothing, the symptoms are aggravated by urinating. Associated signs and symptoms: Pertinent positives: dysuria, urinary frequency, vaginal itching, small amounts, urgency. Severity of symptoms: At their worst the symptoms were moderate, in the emergency department the symptoms are unchanged. The patient has not experienced similar symptoms in the past. The patient has not recently seen a physician. Historical: - Allergies: 17:06 Sulfa; jl7 - Home Meds: 17:06 Lovastatin Oral [Active]; carvedilol 3.125 mg oral tab [Active]; jl7 - PMHx: 17:06 Arthritis; Hypertension; Hyperlipidemia; jl7 - PSHx: 17:06 Appendectomy; rotator cuff; Tonsillectomy; jl7 - Immunization history:: Adult Immunizations up to date. - Social history:: Smoking status: Patient denies any tobacco usage or history of. ROS: 17:15 Constitutional: Negative for fever, chills, and weight loss, Neck: Negative for injury, kb pain, and swelling, Cardiovascular: Negative for chest pain, palpitations, and edema, Respiratory: Negative for shortness of breath, cough, wheezing, and pleuritic chest pain, Abdomen/GI: Negative for abdominal pain, nausea, vomiting, diarrhea, and constipation, Back: Negative for injury and pain, MS/Extremity: Negative for injury and deformity, Skin: Negative for injury, rash, and discoloration, Neuro: Negative for headache, weakness, numbness, tingling, and seizure. 17:15 : Positive for urinary symptoms, urinary frequency, small amounts, burning with urination, vaginal itching. Exam: 17:15 Constitutional: This is a well developed, well nourished patient who is awake, alert, kb and in no acute distress. Head/Face: Normocephalic, atraumatic. ENT: Nares patent. No nasal discharge, no septal abnormalities noted. Tympanic membranes are normal and external auditory canals are clear. Oropharynx with no redness, swelling, or masses, exudates, or evidence of obstruction, uvula midline. Mucous membranes moist. Neck: Trachea midline, no thyromegaly or masses palpated, and no cervical lymphadenopathy. Supple, full range of motion without nuchal rigidity, or vertebral point tenderness. No Meningismus. Chest/axilla: Normal chest wall appearance and motion. Nontender with no deformity. No lesions are appreciated. Cardiovascular: Regular rate and rhythm with a normal S1 and S2. No gallops, murmurs, or rubs. Normal PMI, no JVD. No pulse deficits. Respiratory: Lungs have equal breath sounds bilaterally, clear to auscultation and percussion. No rales, rhonchi or wheezes noted. No increased work of breathing, no retractions or nasal flaring. Abdomen/GI: Soft, non-tender, with normal bowel sounds. No distension or tympany. No guarding or rebound. No evidence of tenderness throughout. Skin: Warm, dry with normal turgor. Normal color with no rashes, no lesions, and no evidence of cellulitis. MS/ Extremity: Pulses equal, no cyanosis. Neurovascular intact. Full, normal range of motion. Neuro: Awake and alert, GCS 15, oriented to person, place, time, and situation. Cranial nerves II-XII grossly intact. Motor strength 5/5 in all extremities. Sensory grossly intact. Cerebellar exam normal. Normal gait. 17:15 : Pelvic Exam: External exam: erythema is noted, excoriation noted. Vital Signs: 17:02 BP 138 / 89; Pulse 75; Resp 17 S; Temp 98.8(O); Pulse Ox 100% on R/A; Weight 81.65 kg jl7 (R); Height 5 ft. 6 in. (167.64 cm) (R); Pain 10/10; 17:02 Body Mass Index 29.05 (81.65 kg, 167.64 cm) jl7 MDM: 16:47 Patient medically screened. kdr 17:15 Data reviewed: vital signs, nurses notes. Data interpreted: Pulse oximetry: on room air kb is 100 %. Interpretation: normal. Counseling: I had a detailed discussion with the patient and/or guardian regarding: the historical points, exam findings, and any diagnostic results supporting the discharge/admit diagnosis, lab results, the need for outpatient follow up, a family practitioner, to return to the emergency department if symptoms worsen or persist or if there are any questions or concerns that arise at home. 05/02 17:12 Order name: Urine Microscopic Only kb 05/02 17:14 Order name: Urine Dipstick--Ancillary (enter results) eb Administered Medications: 17:23 Drug: DiFLUcan 150 mg Route: PO; jl7 17:26 Follow up: Response: Medication administered at discharge. jl7 17:23 Drug: Macrobid 100 mg Route: PO; jl7 17:26 Follow up: Response: Medication administered at discharge. jl7 Disposition: 18:10 Co-signature as Attending Physician, Kervin Talbert MD I agree with the assessment and kdr plan of care. Disposition: 05/03/19 17:19 Discharged to Home. Impression: Urinary tract infection, site not specified, Candidiasis of vulva and vagina. - Condition is Stable. - Discharge Instructions: Vaginal Yeast Infection, Adult, Urinary Tract Infection, Adult, [id number]. - Prescriptions for Diflucan 150 mg Oral Tablet - take 1 tablet by ORAL route one time for 1 day; 1 tablet. Macrobid 100 mg Oral Capsule - take 1 capsule by ORAL route every 12 hours for 10 days; 20 capsule. - Medication Reconciliation Form, Thank You Letter, Antibiotic Education, Prescription Opioid Use form. - Follow up: Emergency Department; When: As needed; Reason: Worsening of condition. Follow up: Private Physician; When: 2 - 3 days; Reason: Recheck today's complaints, Continuance of care, Re-evaluation by your physician. Signatures: Dispatcher [employer] Filomena Estrella, AUTO WASHER-C AUTO WASHER-Kervin Pinon MD MD kdr Leal, Jahala, RN RN jl7 Corrections: (The following items were deleted from the chart) 17:28 17:19 05/03/2019 17:19 Discharged to Home. Impression: Urinary tract infection, site jl7 not specified; Candidiasis of vulva and vagina. Condition is Stable. Forms are Medication Reconciliation Form, Thank You Letter, Antibiotic Education, Prescription Opioid Use. Follow up: Emergency Department; When: As needed; Reason: Worsening of condition. Follow up: Private Physician; When: 2 - 3 days; Reason: Recheck today's complaints, Continuance of care, Re-evaluation by your physician. kb
--- NOTE | 2019-05-03 17:22 | ER ---
Nurse's Notes [facility] Name: Gloria Booker Age: 63 yrs Sex: Female : 1955 Arrival Date: 05/03/2019 Time: 16:08 Bed 6 Private MD: Sanchez Humphreys Diagnosis: Urinary tract infection, site not specified;Candidiasis of vulva and vagina Presentation: 05/02 17:02 Chief complaint: Patient states: Burning with urination x 2 weeks and vaginal itching x jl7 3 days. Coronavirus screen: Patient denies fever greater than 100.4F, cough, shortness of breath, or difficulty breathing. Proceed with normal triage process. Ebola Screen: No symptoms or risks identified at this time. Initial Sepsis Screen: Does the patient meet any 2 criteria? No. Patient's initial sepsis screen is negative. Does the patient have a suspected source of infection? No. Patient's initial sepsis screen is negative. Risk Assessment: Do you want to hurt yourself or someone else? Patient reports no desire to harm self or others. Onset of symptoms was April 19, 2019. 17:02 Method Of Arrival: Ambulatory 7 17:02 Acuity: SHARON 4 jl7 Triage Assessment: 17:06 General: Appears in no apparent distress. uncomfortable, Behavior is calm, cooperative, jl7 appropriate for age. Pain: Complains of pain in pelvis Pain currently is 10 out of 10 on a pain scale. EENT: No signs and/or symptoms were reported regarding the EENT system. Neuro: Level of Consciousness is awake, alert, obeys commands, Oriented to person, place, time, situation. Cardiovascular: Patient's skin is warm and dry. Respiratory: Airway is patent Respiratory effort is even, unlabored, Respiratory pattern is regular, symmetrical. : Reports burning with urination, vaginal itching. Derm: Skin is pink, warm \T\ dry. Historical: - Allergies: 17:06 Sulfa; jl7 - Home Meds: 17:06 Lovastatin Oral [Active]; carvedilol 3.125 mg oral tab [Active]; jl7 - PMHx: 17:06 Arthritis; Hypertension; Hyperlipidemia; jl7 - PSHx: 17:06 Appendectomy; rotator cuff; Tonsillectomy; jl7 - Immunization history:: Adult Immunizations up to date. - Social history:: Smoking status: Patient denies any tobacco usage or history of. Screenin:07 Abuse screen: Denies threats or abuse. Denies injuries from another. Nutritional jl7 screening: No deficits noted. Tuberculosis screening: No symptoms or risk factors identified. Fall Risk None identified. Assessment: 17:07 General: See triage assessment. jl7 Vital Signs: 17:02 BP 138 / 89; Pulse 75; Resp 17 S; Temp 98.8(O); Pulse Ox 100% on R/A; Weight 81.65 kg jl7 (R); Height 5 ft. 6 in. (167.64 cm) (R); Pain 10/10; 17:02 Body Mass Index 29.05 (81.65 kg, 167.64 cm) 7 ED Course: 16:08 Patient arrived in ED. ag5 16:08 Sanchez Humphreys MD is Private Physician. ag5 16:22 Kervin Talbert MD is Attending Physician. kdr 17:02 Yuliya Painting RN is Primary Nurse. jl7 17:05 Triage completed. jl7 17:06 Arm band placed on right wrist. jl7 17:07 Patient has correct armband on for positive identification. Bed in low position. Call [facility] light in reach. Side rails up X 1. 17:12 Filomena Agarwal FNP-C is [facility]. kb 17:15 Urine collected: clean catch specimen, cloudy. jl7 17:26 No provider procedures requiring assistance completed. Patient did not have IV access jl7 during this emergency room visit. Administered Medications: 17:23 Drug: DiFLUcan 150 mg Route: PO; jl7 17:26 Follow up: Response: Medication administered at discharge. jl7 17:23 Drug: Macrobid 100 mg Route: PO; jl7 17:26 Follow up: Response: Medication administered at discharge. jl7 Outcome: 17:19 Discharge ordered by . kb 17:28 Discharged to home ambulatory. jl7 17:28 Discharge instructions given to patient, Instructed on discharge instructions, follow up and referral plans. medication usage, Demonstrated understanding of instructions, follow-up care, medications, Prescriptions given X 2. 17:28 Patient left the ED. 7 Signatures: Filomena Agarwal FNP-C STRATEGIC SOURCING MANAGER-Ckb Rittger, Kervin, Yuliya Roman MD, RN RN jl7 Julita Servin ag5
[2019-05-03] MEDS ORDERED: NITROFURAN MACRO 100 MG CAP PO ONE (17:25)
[2019-05-03] MEDS ORDERED: FLUCONAZOLE 100 MG TAB ONE (17:25)
[2019-05-03 17:32] LABS: Urine Blood 1+ (NEG); Urine Glucose NEGATIVE (NEG); Urine Protein NEGATIVE (NEG)
[2019-05-03 17:34] VITALS: BP 138/89; TEMP 98.8; O2SAT 100
[2019-05-03 17:35] LABS: Urine Bacteria <20 /HPF (<20); Urine Culture Reflex Order REFLEXED; Urine RBC <5 /HPF (NONE SEEN)
== END 2019-05-03 17:28 | disposition home or self-care (01) ==
LOC: ER 16:05
DX: N39.0 Urinary tract infection, site not specified (principal); B37.3 Candidiasis of vulva and vagina; Z88.2 Allergy status to sulfonamides; I10 Essential (primary) hypertension
CPT/HCPCS: 81003; 81015; 87086; 87088; 99283

== ENCOUNTER 2020-01-23 14:24 | Emergency (ER) | payer BC ==
--- OUTSIDE RECORDS SUMMARY | 2020-01-23 14:26 | XMS REPORT | Continuity of Care Document ---
:1955 Author Organization [facility] t Address [address] [place] [address] Care Team Providers Name Role Phone Unavailable Unavailable Unavailable Payers Payer Name Policy Type Policy Number Effective Date Expiration Date S ource Problems This patient has no known problems. Allergies, Adverse Reactions, Alerts This patient has no known allergies or adverse reactions. Medications This patient has no known medications. Procedures This patient has no known procedures. Results Test Description Test Time Test Comments Results Result Comments Source BASIC METABOLIC PANEL 2018-09-02 12:16:00 Test Item Value Reference Range Interpretation Comme nts SODIUM (test code = NA) 141 MMOL/L 137-145 N POTASSIUM (test code = K) 4.4 MMOL/L 3.5-5.1 N CHLORIDE (test code = CL) 105 MMOL/L 98-107 N CARBON DIOXIDE (test code = CO2) 25 MMOL/L 22-30 N GLUCOSE (test code = GLU) 104 MG/DL 74-106 N BLOOD UREA NITROGEN (test code = 34 MG/DL 7-17 H BUN) GLOMERULAR FILTRATION RATE (test 45 Reporting units: ml/min/1.73 code = GFR) m2 (Modified M DRD Formula)Referen ce Range: > or = 60 ml/min/1.7 3 m2 CREATININE (test code = CREAT) 1.20 MG/DL 0.52-1.04 H CALCIUM (test code = CA) 10.6 MG/DL 8.4-10.2 H [id number] 12:16:00 Test Item Value Reference Range Interpretation Comments MAGNESIUM (test code = MAG) 2.0 MG/DL 1.6-2.3 N PROTHROMBIN [id number] 12:05:00 Test Item Value Reference Range Interpretation Comments PROTHROMBIN TIME 10.7 SECONDS 9.6-11.6 N PATIENT (test code = PTP) INTERNATIONAL NORMAL 1.0 0.8-1.1 N The INR is to be RATIO (test code = used only for INR) monitoring oral anticoagulantth erap y. INDICATION I NR VALUE ---- ---- ---- -------1. Prophylaxis, de ep venous thrombos is, including hig h risk surgery. 2.0 - 3.0 2. Prophylaxis, de ep venous thrombos is, hip surgery, treatment for d eep venous thrombosis or pulmonary prevention of systemic emboli sm in patients wit h valvular heart disease, atrial fibrillation, tissue heart va lve, or acute myocar dial infarction. 2.0 - 3 .0 3. Mechanical prosthesis hear t valves, recurrent syste rupali embolism. 3.0 - 4.5 Comments to Alarm Field Technician: WILL BRING TO THE LABPTT [id number] 12:05:00 Test Item Value Reference Range Interpretation Comments PTT ACTIVATED (test code = APTT) 30.2 SECONDS 22.0-33.0 N Comments to Alarm Field Technician: WILL BRING TO THE L[facility]BC W/AUTO [id number] 11:50:00 Test Item Value Reference Range Interpretation Comments WHITE BLOOD CELL (test code = 5.1 K/MM3 3.8-9.8 N WBC) RED BLOOD CELL (test code = 3.84 M/MM3 3.58-4.97 N RBC) HEMOGLOBIN (test code = HGB) 11.9 G/DL 11.2-14.9 N HEMATOCRIT (test code = HCT) 35.7 % 33.2-43.5 N MEAN CELL VOLUME (test code = 93 fL 80.7-99.1 N MCV) MEAN CELL HGB (test code = MCH) 31.0 pg 27.0-34.1 N MEAN CELL HGB CONCETRATION 33.3 % 32.2-35.7 N (test code = MCHC) RED CELL DISTRIBUTION WIDTH 13.9 % 12.1-15.2 N (test code = RDW) PLATELET COUNT (test code = 156 K/MM3 129-368 N PLT) MEAN PLATELET VOLUME (test code 10.5 fl 7.4-10.4 H = MPV) NEUTROPHIL % (test code = NT%) 44.3 % 43-75 N IMMATURE GRANULOCYTE % (test 0.4 % 0.0-2.0 N code = IG%) LYMPHOCYTE % (test code = LY%) 35.9 % 14-44 N MONOCYTE % (test code = MO%) 10.6 % 4-13 N EOSINOPHIL % (test code = EO%) 8.0 % 0-6 H BASOPHIL % (test code = BA%) 0.8 % 0-2 N NUCLEATED RBC % (test code = 0.0 % 0-1.0 N NRBC%) NEUTROPHIL # (test code = NT#) 2.26 K/mm3 2.0-7.6 N IMMATURE GRANULOCYTE # (test 0.02 x10 3/uL 0-0.03 N code = IG#) LYMPHOCYTE # (test code = LY#) 1.83 K/mm3 1.0-3.8 N MONOCYTE # (test code = MO#) 0.54 K/mm3 0.1-0.8 N EOSINOPHIL # (test code = EO#) 0.41 K/mm3 0.0-0.2 H BASOPHIL # (test code = BA#) 0.04 K/mm3 0.0-0.2 N NUCLEATED RBC # (test code = 0.00 K/mm3 0.0-0.1 N NRBC#)
--- NOTE | 2020-01-23 17:02 | ER ---
Nurse's Notes [facility] Name: Gloria Booker Age: 64 yrs Sex: Female : 1955 Arrival Date: 01/23/2020 Time: 14:26 Bed 18 Private MD: Diagnosis: Urticaria, unspecified Presentation: 01/22 15:17 Chief complaint: Patient states: Started Flagyl last night and woke this morning with jl7 red, itchy rash all over face, took 2 Benadryl this morning with no relief. Coronavirus screen: Client denies travel out of the [place] in the last 14 days. At this time, the client does not indicate any symptoms associated with coronavirus-19. Ebola Screen: No symptoms or risks identified at this time. Onset: The symptoms/episode began/occurred acutely. Anaphylaxis evaluation, no signs or symptoms of anaphylaxis were noted. Initial Sepsis Screen: Does the patient meet any 2 criteria? No. Patient's initial sepsis screen is negative. Does the patient have a suspected source of infection? No. Patient's initial sepsis screen is negative. Risk Assessment: Do you want to hurt yourself or someone else? Patient reports no desire to harm self or others. Onset of symptoms was January 23, 2020 at 04:30. Care prior to arrival: None. 15:17 Method Of Arrival: Ambulatory [facility] 15:17 Acuity: SHARON 3 jl7 Triage Assessment: 15:22 General: Appears in no apparent distress. uncomfortable, Behavior is calm, cooperative, jl7 appropriate for age. Pain: Denies pain. Derm: Rash noted that is red, urticaria. Historical: - Allergies: 15:22 Sulfa; jl7 - Home Meds: 15:22 Lovastatin Oral [Active]; carvedilol 3.125 mg Oral tab [Active]; jl7 - PMHx: 15:22 Arthritis; Hyperlipidemia; Hypertension; jl7 - PSHx: 15:22 Appendectomy; Tonsillectomy; rotator cuff; jl7 - Immunization history:: Adult Immunizations unknown. - Social history:: Smoking status: unknown. Screenin:50 Abuse screen: Denies threats or abuse. Denies injuries from another. Nutritional ca1 screening: No deficits noted. Tuberculosis screening: No symptoms or risk factors identified. Fall Risk None identified. Assessment: 16:50 General: Appears in no apparent distress. comfortable, Behavior is calm, cooperative, ca1 appropriate for age. Pain: Denies pain. Neuro: Level of Consciousness is awake, alert, obeys commands, Oriented to person, place, time, situation. Respiratory: Airway is patent Respiratory effort is even, unlabored, Respiratory pattern is regular, symmetrical, Breath sounds are clear bilaterally. Derm: Skin is intact, is healthy with good turgor, Skin is pink, warm \T\ dry. Rash noted that is on left cheek and right cheek. Musculoskeletal: Circulation, motion, and sensation intact. Capillary refill < 3 seconds. 17:55 Reassessment: Patient is alert, oriented x 3, equal unlabored respirations, skin aa5 warm/dry/pink. Vital Signs: 15:17 BP 132 / 85; Pulse 86; Resp 17; Temp 98.7; Pulse Ox 100% ; jl7 16:50 BP 128 / 81; Pulse 76; Resp 16 S; Pulse Ox 100% on R/A; ca1 ED Course: 14:26 Patient arrived in ED. ag5 15:21 Triage completed. jl7 15:22 Arm band placed on right wrist. jl7 16:43 Luis Cristobal, MUSIC LEADER is PHCP. pm1 16:43 Ronald Wallace MD is Attending Physician. pm1 16:50 Patient has correct armband on for positive identification. Bed in low position. Call ca1 light in reach. Side rails up X 1. Pulse ox on. NIBP on. Warm blanket given. 17:17 Leena Bautista, RN is Primary Nurse. ca1 17:55 No provider procedures requiring assistance completed. Patient did not have IV access aa5 during this emergency room visit. Administered Medications: 17:35 Drug: Decadron 10 mg Route: IM; Site: left gluteus; aa5 17:55 Follow up: Response: No adverse reaction aa5 17:35 Drug: Pepcid 20 mg Route: PO; aa5 17:55 Follow up: Response: No adverse reaction aa5 Outcome: 17:01 Discharge ordered by . pm1 17:55 Discharged to home ambulatory. aa5 17:55 Condition: stable 17:55 Discharge instructions given to patient, Instructed on discharge instructions, follow up and referral plans. medication usage, Demonstrated understanding of instructions, follow-up care, medications, Prescriptions given X 3. 17:56 Patient left the ED. aa5 Signatures: Noemí Jones, RN RN aa5 Luis Cristobal, MUSIC LEADER MUSIC LEADER pm1 Yuliya Painting RN RN jl7 Leena Bautista RN RN ca1 Julita Servin ag5
--- NOTE | 2020-01-23 17:02 | EDPHYS ---
Physician Documentation [facility] Name: Gloria Booker Age: 64 yrs Sex: Female : 1955 Arrival Date: 01/23/2020 Time: 14:26 Bed 18 Private MD: DILLON Physician Ronald Wallace HPI: 01/22 17:00 This 64 yrs old Female presents to ER via Ambulatory with complaints of pm1 Allergic Reaction. 17:00 The patient presents with itching, rash, of the right cheek and left cheek, itching to pm1 skin on abdomen. Onset: The symptoms/episode began/occurred this morning. Associated signs and symptoms: Pertinent negatives: abdominal pain, fever, nausea, shortness of breath, vomiting. Possible causes: antibiotics, Flagyl. At home the patient or guardian has treated the symptoms with Benadryl. Severity of symptoms: in the emergency department the symptoms are unchanged. The patient has experienced a previous episode, rash and itching from sulfa about 30 years ago. The patient has been recently seen by a physician: Dr. Medeiros's IT INFRASTRUCTURE ENGINEER and was diagnosed with BV. Prescribed Flagyl and took first dosage last night. Woke up this AM with itching and rash. Historical: - Allergies: 15:22 Sulfa; jl7 - Home Meds: 15:22 Lovastatin Oral [Active]; carvedilol 3.125 mg Oral tab [Active]; jl7 - PMHx: 15:22 Arthritis; Hyperlipidemia; Hypertension; jl7 - PSHx: 15:22 Appendectomy; Tonsillectomy; rotator cuff; jl7 - Immunization history:: Adult Immunizations unknown. - Social history:: Smoking status: unknown. ROS: 17:00 Constitutional: Negative for fever, chills, and weight loss, Cardiovascular: Negative pm1 for chest pain, palpitations, and edema, Respiratory: Negative for shortness of breath, cough, wheezing, and pleuritic chest pain, Abdomen/GI: Negative for abdominal pain, nausea, vomiting, diarrhea, and constipation. 17:00 MS/Extremity: Negative for injury and deformity, Skin: Negative for injury, rash, and discoloration, Neuro: Negative for headache, weakness, numbness, tingling, and seizure. 17:00 : Positive for vaginal discharge, whitish and diagnosed as BV, Negative for urinary symptoms, flank pain. Exam: 17:00 Constitutional: This is a well developed, well nourished patient who is awake, alert, pm1 and in no acute distress. Head/Face: Normocephalic, atraumatic. 17:00 Cardiovascular: Exam negative for acute changes, Rate: normal, Rhythm: regular, Pulses: no pulse deficits are appreciated. 17:00 Respiratory: Exam negative for acute changes, respiratory distress, shortness of breath. 17:00 Skin: Appearance: normal except for affected area, consistent with urticaria, on the left cheek and right cheek. 17:00 Neuro: Exam negative for acute changes, Orientation: is normal, Mentation: is normal, Motor: is normal, moves all fours. Vital Signs: 15:17 BP 132 / 85; Pulse 86; Resp 17; Temp 98.7; Pulse Ox 100% ; jl7 16:50 BP 128 / 81; Pulse 76; Resp 16 S; Pulse Ox 100% on R/A; ca1 MDM: 16:43 Patient medically screened. pm1 16:58 Data reviewed: vital signs. Data interpreted: Pulse oximetry: on room air is 100 %. pm1 Interpretation: normal. 17:00 Counseling: I had a detailed discussion with the patient and/or guardian regarding: the pm1 historical points, exam findings, and any diagnostic results supporting the discharge/admit diagnosis, the need for outpatient follow up, an OB/Gyne specialist, to return to the emergency department if symptoms worsen or persist or if there are any questions or concerns that arise at home. 17:00 ED course: Patient was diagnosed with bacterial vaginosis by her pot filler and was pm1 prescribed Flagyl. She took it for the first time last night and woke up with rash to face and itching to abdominal area. Will treat with clindamycin intravaginally since Flagyl allergy is now present. 17:00 ED course: Told patient to stop Flagyl. pm1 Administered Medications: 17:35 Drug: Decadron 10 mg Route: IM; Site: left gluteus; aa5 17:55 Follow up: Response: No adverse reaction aa5 17:35 Drug: Pepcid 20 mg Route: PO; aa5 17:55 Follow up: Response: No adverse reaction aa5 Disposition: 01/23/20 17:01 Discharged to Home. Impression: Urticaria, unspecified. - Condition is Stable. - Discharge Instructions: Bacterial Vaginosis, Drug Allergy, Hives, Rash. - Prescriptions for clindamycin phosphate 2 % Vaginal cream - insert 1 applicatorful by VAGINAL route once daily for 7 days at bedtime; 7 unit. Pepcid 20 mg Oral Tablet - take 1 tablet by ORAL route every 12 hours for 10 days; 20 tablet. Medrol (Yves) 4 mg Oral Tablets, Dose Pack - take 1 tablet by ORAL route as directed - follow package instructions; 1 packet. - Medication Reconciliation Form, Thank You Letter, Antibiotic Education, Prescription Opioid Use form. - Follow up: Emergency Department; When: As needed; Reason: Worsening of condition. Follow up: Private Physician; When: 2 - 3 days; Reason: Recheck today's complaints, Continuance of care, Re-evaluation by your physician. - Problem is new. - Symptoms have improved. Addendum: 01/24/2020 18:00 Co-signature as Attending Physician, Ronald Wallace MD I agree with the assessment and c presley plan of care. Signatures: Ronald Wallace MD MD cha Calderon, Audri, RN RN aa5 Luis Cristobal, IT INFRASTRUCTURE ENGINEER IT INFRASTRUCTURE ENGINEER pm1 Yuliya Painting RN RN jl7 Corrections: (The following items were deleted from the chart) 01/22 17:56 17:01 01/23/2020 17:01 Discharged to Home. Impression: Urticaria, unspecified. aa5 Condition is Stable. Forms are Medication Reconciliation Form, Thank You Letter, Antibiotic Education, Prescription Opioid Use. Follow up: Emergency Department; When: As needed; Reason: Worsening of condition. Follow up: Private Physician; When: 2 - 3 days; Reason: Recheck today's complaints, Continuance of care, Re-evaluation by your physician. Problem is new. Symptoms have improved. pm1
[2020-01-23] MEDS ORDERED: FAMOTIDINE 20 MG TAB ONE (17:47)
[2020-01-23] MEDS ORDERED: dexAMETHasone 10 MG/ML VIAL ONE (17:47)
== END 2020-01-23 17:56 | disposition home or self-care (01) ==
LOC: ER 14:24
DX: L50.9 Urticaria, unspecified (principal); I10 Essential (primary) hypertension; Z88.2 Allergy status to sulfonamides
CPT/HCPCS: 96372; 99283; J1100

== ENCOUNTER 2020-11-10 05:55 | Day surgery (SDC) | payer BC ==
[2020-11-10] MEDS: Ringers Lactate 1,000 ML IV ONE ×2 (07:23→07:28)
[2020-11-10] MEDS: OFLOXACIN OPH 0.3%-5 ML BTL ONE ×2 (07:28→07:41)
[2020-11-10] MEDS ORDERED: LIDOCAINE 1% MPF 5 ML VIAL ONE (07:44)
[2020-11-10] MEDS ORDERED: propofoL 200 MG/20 ML VIAL IV ONE (07:44)
[2020-11-10] MEDS ORDERED: MIDAZOLAM HCL 2 MG/2 ML INJ ONE (07:44)
[2020-11-10] MEDS ORDERED: OXYMETAZOLINE HCL 0.05% 15ML NAS ONE (07:47)
[2020-11-10] MEDS ORDERED: ONDANSETRON 4 MG/2 ML VIAL ONE (07:48)
--- NOTE | 2020-11-10 07:53 | P.OP ---
Pre-Op Diagnosis: Conductive hearing loss, Other (Chronic bilateral eustachian tube dysfunction) Procedure: Bilateral myringotomy and tympanostomy tube placement Anesthesia: Other (General via LMA) Fluids/ Blood products: Other (450ml crystalloid) Estimated blood loss: Nil Specimen: None Findings: Other (right pars flaccida retraction, left pars tensa retraction with serous effusion) Complications: None Implants: Villanueva T tympanostomy tube Indication: Patient with recurrent acute otitis media and persistent middle ear fluid in spite of good medical management. Details of Operation: The patient was brought to the operating room and placed under general anesthesia via inhalation mask. The left ear was visualized under the operating microscope. A speculum aided visualization. Cerumen was removed from the canal using a wire curette.The TM was retracted with serous middle ear effusion. A myringotomy incision was made in the anterior-inferior quadrant and serous fluid was aspirated from the middle ear space. A Villanueva T tympanostomy tube was positioned across the incision using the alligator and pick. Ofloxacin ophthalmic drops were instilled and a cotton ball placed at the meatus. A similar procedure was performed on the right side. Cerumen was removed from the canal using a wire curette. The pars flaccida was retracted but no middle ear fluid was noted. A myringotomy incision was made in the anterior-inferior quadrant and no fluid was aspirated from the middle ear space. A Villanueva T tympanostomy tube was positioned across the incision using the alligator and pick. Ofloxacin ophthalmic drops were instilled and a cotton ball placed at the meatus. Disposition: The patient was then awakened from anesthesia and taken to the recovery room in stable condition.
[2020-11-10] MEDS: MORPHINE 4 MG/ML SYR ONE ×4 (08:01→08:18)
[2020-11-10] MEDS ORDERED: OFLOXACIN OPH 0.3%-5 ML BTL ONE (08:21)
[2020-11-10 09:59] VITALS: BP 118/58; TEMP 98.7; O2SAT 99
--- NOTE | 2020-11-11 10:44 | EKG ---
Test Date: 2020-11-10 Test Time: 06:14:27 Fish Smoker: ERAN MEASUREMENT RESULTS: Intervals: Rate: 65 FL: 168 QRSD: 88 QT: 426 QTc: 443 Gray: P: 81 FL: 168 QRS: -7 T: 33 INTERPRETIVE STATEMENTS: Normal sinus rhythm Low voltage QRS Borderline ECG Compared to ECG 07/17/2018 19:41:42 Low QRS voltage now present Electronically Signed On 11-11-20 10:40:19 CDT by Ryan Nguyen
== END 2020-11-10 09:55 | disposition home or self-care (01) ==
LOC: OR 05:55
PROVIDERS: ATTEND Otolaryngology
PROC: 099570Z Drainage of Right Middle Ear with Drainage Device, Via Natural or Artificial Opening (ICD-10-PCS; 2020-11-10)
PROC: 099670Z Drainage of Left Middle Ear with Drainage Device, Via Natural or Artificial Opening (ICD-10-PCS; principal; 2020-11-10 07:30)
DX: H90.0 Conductive hearing loss, bilateral (principal)
CPT/HCPCS: 93005; 69436; J2704; J2250; J7120; J2405

== ENCOUNTER 2022-02-06 05:42 | Observation (INO) | payer BC, OTHER ==
[2022-01-10 13:45] LABS: Absolute Lymphocytes (CBC) 1.8 K/uL (0.7-4.9); Hematocrit 34.4 % (36.0-45.0); Lymphocytes % 38.1 % (15.3-44.8); MCV 94.2 fL (80-100); MPV 7.4 fL (7.6-11.3); RBC Red Blood Cell Count 3.65 M/uL (3.86-4.86)
[2022-01-10 13:46] LABS: Specific Gravity 1.014 (1.005-1.030); Urine Bilirubin NEGATIVE (Negative); Urine Blood Negative (Negative); Urine Clarity Clear (Clear); Urine Color Light-Yellow (Yellow); Urine Glucose NEGATIVE (Negative); Urine Mucus Slight /HPF (None Seen); Urine Protein NEGATIVE (Negative); Urine RBC <5 /HPF (None Seen); Urine Urobilinogen Normal (Normal)
[2022-01-10 13:53] LABS: Protime INR 0.98
[2022-01-10 14:00] LABS: Potassium 3.9 mmol/L (3.5-5.1)
[2022-01-10 14:01] LABS: SARS-CoV-2 Antigen Rapid Res Positive (Negative)
[2022-02-06] MEDS ORDERED: CEFAZOLIN SODIUM 2 GM/VIAL ONE (05:54)
[2022-02-06] MEDS ORDERED: SCOPOLAMINE HYDROBROMIDE PATCH TD ONE (05:55)
[2022-02-06] MEDS ORDERED: Ringers Lactate 1,000 ML IV ONE ×3 (05:55→09:45)
[2022-02-06] MEDS ORDERED: propofoL 200 MG/20 ML VIAL IV ONE (06:30)
[2022-02-06] MEDS ORDERED: dexAMETHasone 10 MG/ML VIAL ONE (06:30)
[2022-02-06] MEDS ORDERED: ROCURONIUM 50 MG/5 ML VIAL IV ONE (06:30)
[2022-02-06] MEDS ORDERED: KETAMINE HCL 500 MG/5 ML VIAL ONE (06:30)
[2022-02-06] MEDS ORDERED: MIDAZOLAM HCL 2 MG/2 ML INJ ONE (06:31)
[2022-02-06] MEDS ORDERED: FENTANYL CITR 250 MCG/5 ML ONE (06:31)
[2022-02-06] MEDS ORDERED: ONDANSETRON 4 MG/2 ML VIAL ONE (06:31)
[2022-02-06] MEDS ORDERED: LIDOCAINE 2% MPF 5 ML VIAL ONE (06:31)
[2022-02-06] MEDS ORDERED: NS 0.9% VIAL 20 ML ONE (06:31)
[2022-02-06] MEDS ORDERED: EPHEDRINE SULF 50 MG/ML VIAL ONE (07:08)
[2022-02-06] MEDS ORDERED: CEFAZOLIN SODIUM 1 GM/VIAL ONE ×2 (08:08→10:54)
[2022-02-06] MEDS ORDERED: NA CHLORIDE 0.9% 100 ML IV ONE (08:09)
[2022-02-06] MEDS ORDERED: BUPIVACAINE 0.25% PF 30 ML VIAL ONE (08:09)
[2022-02-06] MEDS: VASOPRESSIN 20 UNIT/ML VIAL ONE ×2 (08:25→10:00)
[2022-02-06] MEDS ORDERED: LIDOCAINE 1% W/EPI 1:100,000 30 ML VIAL ONE (09:38)
[2022-02-06] MEDS ORDERED: FENTANYL CITR 100 MCG/2 ML ONE (10:29)
[2022-02-06] MEDS ORDERED: KETOROLAC 30 MG/ML INJ ONE (11:59)
[2022-02-06] MEDS ORDERED: MORPHINE 2 MG/ML SYR IV PRN (12:08)
[2022-02-06] MEDS ORDERED: HYDROCODONE/APAP 5/325 MG TAB PO PRN (12:08)
[2022-02-06] MEDS ORDERED: ACETAMINOPHEN 500 MG TAB PO PRN (12:08)
[2022-02-06] MEDS ORDERED: PROMETHAZINE INJ 25 MG/ML AMP IV PRN (12:08)
--- NOTE | 2022-02-06 12:19 | P.BOP ---
Preoperative diagnosis: stage 3 uterovaginal prolapse PMB Junito Postoperative diagnosis: same Primary procedure: TLH BSO, Vag Biologic graft augmented Austen sslf colpopexy, A/P repairs Secondary procedure: perineorrhaphy, TO Mid-urethral sling, cystoscopy Lye Bath Operator: Katie Pedraza Estimated blood loss: 100 Specimen: uterus tubes and ovaries Findings: 0/+2/+4/5.5/ thin/8/0/+1/0 Anesthesia: General Complications: None Drain(s): Urinary catheter Implants: Coloplast 8x6 axis dermis graft, TVT-O Fluids & blood products: UO 400, LR 2600 Transferred to: Recovery Room
[2022-02-06] MEDS: HYDROMORPHONE HCL 1 MG/ML INJ ONE ×3 (13:25→13:31)
--- OUTSIDE RECORDS SUMMARY | 2022-02-06 13:39 | XMS REPORT | Continuity of Care Document ---
:1955 Author Organization [facility] t Address [address] [place] [address] Care Team Providers Name Role Phone Asked, No Pcp Primary Care Physician Unavailable Ramon Kenney MD Attending Clinician Payers Payer Name Policy Type Policy Number Effective Date Expiration Date S ource Problems This patient has no known problems. Allergies, Adverse Reactions, Alerts This patient has no known allergies or adverse reactions. Social History Social Habit Start Date Stop Date Quantity Comments Source Sex Assigned At [birth year] F [facility] 00:00:00 00:00:00 Smoking Status Start Date Stop Date Source Tobacco smoking consumption unknown [facility] Medications This patient has no known medications. Procedures Procedure Date / Time Performed Performing Clinician [facility] e CT HEART SCAN W 2021-11-07 21:18:14 Ramon Kenney norma PHYSICIAN ORDER US VASCULAR SCREENING 2021-11-07 20:32:01 Ramon Kenney [facility] HEART SCAN PLUS Plan of Care Planned Activity Planned Date Details Comments Source Future Scheduled 2022-01-23 COVID-19 VACCINE (#1) [facility] Test 14:11:53 [code = COVID-19 VACCINE (#1)] Future Scheduled 2022-01-23 Hepatitis C screening [facility] Test 14:11:53 (procedure) [code = [id number]] Future Scheduled 2022-01-23 BREAST CANCER [facility] Test 14:11:53 SCREENING [code = BREAST CANCER SCREENING] Future Scheduled 2022-01-23 COLONOSCOPY SCREENING [facility] Test 14:11:53 [code = COLONOSCOPY SCREENING] Future Scheduled 2022-01-23 SHINGLES VACCINES (1 [facility] Test 14:11:53 of 2) [code = SHINGLES VACCINES (1 of 2)] Future Scheduled 2022-01-23 65+ [facility]AL [facility] Test 14:11:53 VACCINE (1 - PCV) [code = 65+ PNEUMOCOCCAL VACCINE (1 - PCV)] Future Scheduled 2022-01-23 [facility]ACCINE [facility] 14:11:53 [code = INFLUENZA VACCINE] Encounters Start End Encounter Admission Attending Care Care Encounter Source Date/Time Date/Time Type Type Clinicians Facility Department ID 2021-11-07 2021-11-07 [facility], 1.2.840.1 [id number] [facility] 14:31:44 23:59:00 Encounter Ramon [id number] 3.430.2.7 Hospit a .3.733111 l .8 2021-11-07 2021-11-07 [facility] 1.2.840.1 [id number] [facility] 14:31:26 23:59:00 Encounter Ramon [id number] 3.430.2.7 Hospit a .[id number] l .8 2021-11-07 2021-11-07 Outpatient [facility] [id number] [place] 00:00:00 00:00:[address] RAMON [address] 2021-11-07 2021-11-07 Outpatient [facility] [id number] [place] 00:00:00 00:00:00 RAMON [address] 2021-11-07 2021-11-07 Travel 1.2.840.1 [id number] [facility] 00:00:00 00:00:[id number] 3.430.2.7 0.2.7.3.698 [facility] .[id number] 084.8 l .8 2021-10-19 2021-10-19 Transcribe Sherri eKnney.2.840.1 [id number] [facility] 00:00:00 00:00:00 Orders Ramon [id number] 3.430.2.7 Hospit a .3.399565 l .8 Results Test Description Test Time Test Comments [...] units: ml/min/1.73 code = GFR) m2 (Modified MD RD Formula)Referen ce Range: > or = 60 ml/min/1.7 3 m2 CREATININE (test code = CREAT) 1.20 MG/DL 0.52-1.04 H CALCIUM (test code = CA) 10.6 MG/DL 8.4-10.2 H [id number] 12:16:00 Test Item Value Reference Range Interpretation Comments MAGNESIUM (test code = MAG) 2.0 MG/DL 1.6-2.3 N PROTHROMBIN [id number] 12:05:00 Test Item Value Reference Range Interpretation Comments PROTHROMBIN TIME 10.7 SECONDS 9.6-11.6 N PATIENT (test code = PTP) INTERNATIONAL NORMAL 1.0 0.8-1.1 N The INR is to be RATIO (test code = used only for INR) monitoring oral anticoagulantth erap y. INDICATION I NR VALUE ---- ---- ---- -------1. Prophylaxis, de ep venous thrombos is, including high risk surgery. 2.0 - 3.0 2. Prophylaxis, deep venous thrombosis, hip surgery, treatm ent for deep venous thrombosis or pulmonary prevention of systemic emboli sm in patients wit h valvular heart disease, atrial fibrillation, tissue heart va lve, or acute myocar dial infarction. 2.0 - 3.0 3. [employer] Specialist al prosthesis hear t valves, recurre nt systemic emboli sm. 3.0 - 4.5 Comments to Lead Software Tester: WILL BRING TO THE LABPTT [id number] 12:05:00 Test Item Value Reference Range Interpretation Comments PTT ACTIVATED (test code = APTT) 30.2 SECONDS 22.0-33.0 N Comments to Lead Software Tester: WILL BRING TO THE LABCBC W/AUTO [id number] 11:50:00 Test Item Value Reference Range Interpretation [...]
[2022-02-06] MEDS: IBUPROFEN 600 MG TAB PO PRN (15:34)
[2022-02-06] MEDS: CEFAZOLIN 1 GM in NA CHLORIDE 0.9% 50 ML IVPB SCH (16:56)
[2022-02-06] MEDS: Ringers Lactate 1,000 ML IV SCH (16:59)
[2022-02-06 17:35] VITALS: O2SAT 99
--- NOTE | 2022-02-06 19:37 | OP ---
Date of Procedure: 02/06/2022 Surgeon: Rosalba Medeiros MD Mortgage Branch Manager: Katie Pedraza. Preoperative Diagnoses: Stage III uterovaginal prolapse, postmenopausal bleeding, and stress urinary incontinence. Postoperative Diagnoses: Stage III uterovaginal prolapse, postmenopausal bleeding, stress urinary in continence, distal posterior wall defect as well. Procedures Performed: 1.Total laparoscopic hysterectomy, bilateral salpingo-oophorectomy. 2.Vaginal biologic graft augmented, bilateral sacrospinous ligament fixation, colpopexy, anterior re pair that was augmented with a biologic graft as well, posterior repair and perineorrhaphy, transobtu rator mid urethral sling (TVT-O cystoscopy). Estimated Blood Loss: 100. Specimens: Uterus, tubes, and ovaries. Findings: POP-Q 0+, 2+, 4, 5.5 and 8, 0, +1, 0. The ureteric orifices were both patent at the end t he procedure. No evidence of any trauma or foreign body in the bladder. A sling was placed appropri ately. Drains: Drew catheter and vaginal packing. Implant: Culdoplasty by 6 axis dermis graft in the anterior compartment and TVT-O for the sling. Fluids: 2600 LR and urine output 400. Disposition: Transferred to the recovery room in stable condition. Patient had 2 g of Ancef at the beginning of the case and at 3 hours. Description Of Procedure: After informed consent was verified, she was taken back to OR, placed in s upine fashion on the operating table. General anesthesia was given. She was placed in dorsal lithot mario position using Sergio stirrups. Her blood had to be drawn about 2 times as there were problems wi th labeling then with hemolysis of the specimen on her right forearm and hand as well as on her left foot. Once all this was settled, procedure was started. Abdomen, vulva, vagina, and perineum preppe d and draped in a sterile fashion. Drew was placed to drain the bladder. POP-Q was done as above. Plan was to evaluate for a sacral colpopexy and if this was time-consuming or not feasible or approp riate, then I would do a vaginal repair. Thus she was consented this way in the preoperative area as well with her friend at the bedside and Q and A was done to their satisfaction. Vaginal large VCare was introduced into the uterus and fixed in place. Drew was placed to drain and attached to retrograde drainage bag. 1 cm infraumbilical incision was made with a scalpel using the open laparoscopy technique. Fascia wa s incised tagged with 0 Vicryl sutures. Peritoneum entered sharply. Destiny introduced after adequat e insufflation. Site of entry was checked and was unremarkable. The patient was placed in Trendelen alla, and the small bowel was packed into the upper abdomen and sigmoid colon retracted with Monocryl . The left upper quadrant Eb-Дмитрий needle, 10 suprapubic and 5 left lower quadrant ports were placed under direct vision. Then, after visualizing both tubes and ovaries, and the uterus which presley d a fibroid on the anterior aspect, went ahead and took down the adhesions of the colon to the left l ateral wall even after the natural attachment with the help of the LigaSure and sharp dissection. On ce this was done and the left adnexa was well visualized in the IP as well. Then, dissection was per formed to take down the left IP ligament, tube, mesosalpinx and mesovarium round ligament, then broad ligament taken down all the way to the level of the vaginal cuff and vessels taken down here without any problems. Similar dissection performed on the opposite side where the IP ligament was isolated and taken down, severed from the lateral attachment to the lateral wall. Then, tube was dissected ca refully. Then, the rest of the mesosalpinx dissected round ligament taken down and broad ligament ta sherrie down to the level of the cuff. Vessels taken down as well with the LigaSure. Then, the bladder was dissected anteriorly and dissected inferiorly, the vesicovaginal space, and circumferential colpo gricel performed with a monopolar hook blade. The specimen detached and pulled out through the vagina. After thorough irrigation and suction were performed, 2-0 V-Loc was used to close the vaginal cuff in 2 layers imbricating the first layer. Once this was done, thorough irrigation and suction were pe rformed. No evidence of any electrical, mechanical, or thermal injury to the ureters. The anterior compartment defect was significantly larger than the posterior compartment and so went ahead and deci ded to perform anterior repair with a biologic graft augmented colpopexy. The ports were removed under direct vision. Fascia at the umbilicus and the suprapubic area were erin sed as well with the 0 Vicryl sutures, then 3-0 chromic and the subcutaneous tissues at the umbilicus and blaire at all other incisions. Once this was draped, started the vaginal procedure under the UVJ, and then, right above the vaginal cuff in the midline. Allis's were placed, injected with dilute vasopressin 20 cc. Incision was made with a 15 blade and incision extended all the way to the UVJ and on to the vaginal apex in the midli ne. Then, bladder dissected underneath the fascia all the way to the paravesical spaces staying clos er to the vaginal apex and getting to ischial spine. Paravaginal space and pararectal spaces were op ened. The spaces were opened up. The white line was approached, cleaned up laterally by sweeping an terior and lateral to the ischial spine medial and posteriorly to clean up the sacrospinous ligament and the pararectal space. Once this dissection was performed on both sides, the left dissection was much easier than the right, then took the Capio device and placed a Prolene suture each in mid ligame nt slightly closer to the spine only 1 cm breath away on the left side, but mid ligament on the right side. Both Prolene sutures were held on hemostats. The suture caps device was not capturing proper ly, so a second device had to be opened and this worked well. Right side white line was stitched wit h PDS on the Capio and similarly on the left side with the PDS Capio and held on clamps. This was pl aced at least 2 cm lateral to the ischial spine. Then, three 2-0 Prolene sutures were placed at the apex, 1 in the center, 2 on either sides, and three 2-0 PDS sutures placed in the distal aspect of th e anterior wall right under the UVJ. The graft was fashioned 8 x 6 x 5 cm and soaked. Apical suture s were fixed with Prolene to the graft, and then, the PDS sutures in the distal midline then capped. The Prolene was attached to the apical lateral aspect with a alex stitch, and then, the PDS was at tached with a simple stitch. The posterior wall vaginal epithelium did not need any trimming and sta rted the closure with a 2-0 Vicryl held with a clamps and then tied down the sacrospinous 1 on each s ginette, and then, went ahead and tied the PDS sutures on each side as well to the white line. There was excellent support in the lateral aspect, apex, and distal wall. Vaginal closure was performed with the epithelial closure and a continuous locked fashion to the distal part. Once this was done, mid u rethral area was picked up with 2 Allis clamps, injected with dilute vasopressin, 1 cm incision made with a 15 blade. Tracts were made at a 45 degrees angle to the horizontal and vertical planes toward s the ipsilateral obturator space. An obturator membrane was perforated. Then, track was expanded b y pulling out the scissors, open on both sides. The similar dissection was performed, then wing guid e was placed, spike was passed through and brought out through incision slightly above the level of t he external meatus, a 1.5 cm lateral to the groin fold on the right side. There was slight bleeding at the exit site. Where as on the opposite side, it was very clear and similar, both mesh and its pl astic covering were held with a Melvi clamp. Central tensioning was performed with Allis clamps trudi ng sure that it was not too tight, and then, once the plastic sheaths were pulled out, mesh was tensi oned appropriately and the sling was cut flush with the skin. The skin closed with the help of Olivette iqbal. The vaginal epithelium was closed after irrigating with antibiotic solution on the sling with 3-0 Mon ocryl in a continuous running horizontal mattress fashion. Drew was removed cystoscopy was performed. Urethra was also unremarkable. Bladder without any fore ign body or injury. Both ureteric orifices were well visualized with strong jets of urine in them. The bladder was drained. Drew was replaced. Attention was directed to the posterior wall. Here, a tina-shaped incision was placed on the seb neum as well as on the distal posterior wall after injecting dilute vasopressin. The vaginal epithel ium and perineal skin were excised staying very superficial dissecting the rectovaginal septum. Ther e was a lateral defect and detachment defect to the perineal body on the left side, closure was done with the help of 2-0 Vicryl in a continuous running fashion. Then, vaginal epithelium was closed wit h the help of a 2-0 Vicryl in a continuous running fashion. Perineal body reconstruction was perform ed with 2 interrupted 2-0 Vicryl sutures, and then, 3-0 Vicryl was used to close the rest of the lowe r part of the incision in 2 layers. Rectal exam was negative. Good perineal body support. Genital hiatus was decreased to 3.5 cm still adequate, and then, rectal exam was done at the end to ensure th at there were no foreign bodies that sutures through the rectal mucosa. Vaginal packing was placed. The patient was recovered from anesthesia and taken to the PACU in stabl e condition. EBL was 100. She will be here overnight. Her friend was explained all about her proce dure, and we will see her back for a voiding trial on Saturday if she needed to go home with a catheter . Otherwise, we will see her at her appointment next week, which is 1 week postop and then in 6 week s. All precautions given. Handouts given. VERO/CHANNING Voice ID: [id number] Report ID: [id number]
[2022-02-06] MEDS ORDERED: ATORVASTATIN 20 MG TAB PO SCH (21:00)
[2022-02-06] MEDS ORDERED: carvediloL 3.125 MG TAB PO SCH (21:00)
[2022-02-07] MEDS ORDERED: CEFAZOLIN SODIUM 1 GM/VIAL ONE (00:38)
[2022-02-07] MEDS ORDERED: NA CHLORIDE 0.9% 100 ML ONE (00:41)
[2022-02-07] MEDS: IBUPROFEN 600 MG TAB PO PRN (00:55)
[2022-02-07] MEDS: Ringers Lactate 1,000 ML IV SCH (01:08)
[2022-02-07 06:53] LABS: Absolute Lymphocytes (CBC) 2.1 K/uL (0.7-4.9); Hematocrit 28.4 % (36.0-45.0); Lymphocytes % 28.2 % (15.3-44.8); MCV 94.1 fL (80-100); MPV 7.2 fL (7.6-11.3); RBC Red Blood Cell Count 3.01 M/uL (3.86-4.86)
[2022-02-07 07:21] VITALS: BP 125/60; TEMP 96.1
[2022-02-07 07:25] LABS: Potassium 3.6 mmol/L (3.5-5.1)
[2022-02-07] MEDS: CEFAZOLIN 1 GM in NA CHLORIDE 0.9% 50 ML IVPB SCH (08:58)
[2022-02-07] MEDS ORDERED: FAMOTIDINE 20 MG TAB PO SCH (09:00)
[2022-02-07] MEDS ORDERED: AZITHROMYCIN 250 MG TAB PO SCH (09:00)
== END 2022-02-07 12:30 | disposition home or self-care (01) ==
LOC: OR 05:42 → 2ND-WC 12:08
PROVIDERS: ADMIT Obstetrics & Gynecology; ATTEND Obstetrics & Gynecology
PROC: 0UT24ZZ Resection of Bilateral Ovaries, Percutaneous Endoscopic Approach (ICD-10-PCS; 2022-02-06)
PROC: 0UT74ZZ Resection of Bilateral Fallopian Tubes, Percutaneous Endoscopic Approach (ICD-10-PCS; 2022-02-06)
PROC: 0USG7ZZ Reposition Vagina, Via Natural or Artificial Opening (ICD-10-PCS; 2022-02-06)
PROC: 0JQC0ZZ Repair Pelvic Region Subcutaneous Tissue and Fascia, Open Approach (ICD-10-PCS; 2022-02-06)
PROC: 0JQC0ZZ Repair Pelvic Region Subcutaneous Tissue and Fascia, Open Approach (ICD-10-PCS; 2022-02-06)
PROC: 0HQ9XZZ Repair Perineum Skin, External Approach (ICD-10-PCS; 2022-02-06)
PROC: 0TSD0ZZ Reposition Urethra, Open Approach (ICD-10-PCS; 2022-02-06)
PROC: 0UT94ZZ Resection of Uterus, Percutaneous Endoscopic Approach (ICD-10-PCS; principal; 2022-02-06 07:30)
DX: N81.3 Complete uterovaginal prolapse (principal); N95.0 Postmenopausal bleeding; N39.3 Stress incontinence (female) (male); U07.1 COVID-19; D25.9 Leiomyoma of uterus, unspecified; N88.8 Other specified noninflammatory disorders of cervix uteri
CPT/HCPCS: 58571; 57282; 57260; 57267 ×2; 57288; 85025 ×2; 81001; 80048 ×2; 36415 ×2; 86900; 86850; 85610; 86901; 88307; 85730; 87811; J2704; J2001; J2250; J3010 ×2; J1100; J2270; A4216; J1170; J7120 ×5; J2405; J0690 ×3; G0378; Q0144

== ENCOUNTER → 2023-03-07 | Emergency (ER) | payer BC, OTHER ==
[~2023-03-07] MED LIST: ACETAMINOPHEN 500 MG TAB ONE; KETOROLAC 30 MG/ML INJ ONE
--- NOTE | 2023-03-07 16:59 | RAD REPORT ---
EXAM DESCRIPTION: RAD - Hip Left 2 View - 03/07/2023 4:22 pm CLINICAL HISTORY: Left hip pain FINDINGS: No fracture or dislocation is seen. Marked osteoarthritis left hip consisting joint space narrowing, subchondral sclerosis and osteophyte s
--- NOTE | 2023-03-07 17:00 | RAD REPORT ---
EXAM DESCRIPTION: RAD - Knee Right 3 View - 03/07/2023 4:22 pm CLINICAL HISTORY: Right knee pain FINDINGS: No fracture or dislocation is seen. Moderate osteoarthritis medial compartment mainly consisting joint space narrowing. Patellofemoral compartment is also involved. Lateral subluxation of the tibia on the femur
--- NOTE | 2023-03-07 17:22 | RAD REPORT ---
EXAM DESCRIPTION: USExtrem Venous W Compress Bil03/07/2023 5:06 pm CLINICAL HISTORY: Leg pain COMPARISON: none FINDINGS: The common femoral, superficial femoral, greater saphenous, popliteal and posterior tibial veins bilaterally are compressible and demonstrate augmentation. Doppler demonstrates good flow. Grayscale, color and spectral analysis performed on all vessels IMPRESSION: No evidence of deep venous thrombosis involving either lower extremity.
--- NOTE | 2023-03-07 18:12 | ER ---
Nurse's Notes [facility] Name: Gloria Booker Age: 67 yrs Sex: Female : 1955 Arrival Date: 03/07/2023 Time: 15:23 Bed 7 Private MD: Diagnosis: Pain in right knee;Pain in left hip;Pain in leg, unspecified Presentation: 03/07 15:36 Chief complaint: Patient states: she is having left leg pain, that sometimes radiates ap3 to her lower back. patient also reports right leg stiffness in the mornings, that she says starts at her right knee down to her heal area. Coronavirus screen: At this time, the client does not indicate any symptoms associated with coronavirus-19. Ebola Screen: No symptoms or risks identified at this time. Initial Sepsis Screen: Does the patient meet any 2 criteria? No. Patient's initial sepsis screen is negative. Does the patient have a suspected source of infection? No. Patient's initial sepsis screen is negative. Risk Assessment: Do you want to hurt yourself or someone else? Patient reports no desire to harm self or others. Onset of symptoms is unknown. 15:36 Method Of Arrival: Ambulatory ap3 15:36 Acuity: SHARON 4 ap3 Triage Assessment: 15:39 General: Appears in no apparent distress. Behavior is calm, cooperative, appropriate ap3 for age. Pain: Complains of pain in right knee and left leg. Neuro: Level of Consciousness is awake, alert, obeys commands, Oriented to person, place, time, situation, Appropriate for age Speech is normal. Cardiovascular: Patient's skin is warm and dry. Respiratory: Airway is patent Respiratory effort is even, unlabored, Respiratory pattern is regular, symmetrical. Historical: - Allergies: 15:38 Sulfa; ap3 - PMHx: 15:38 Arthritis; Hyperlipidemia; Hypertension; ap3 - Immunization history:: Client reports having NOT received the Covid vaccine. Flu vaccine is not up to date. - Social history:: Smoking status: Patient denies any tobacco usage or history of. Screenin:39 Abuse screen: Denies threats or abuse. Nutritional screening: No deficits noted. ap3 Tuberculosis screening: No symptoms or risk factors identified. 16:17 [facility] ED Fall Risk Assessment (Adult) History of falling in the last 3 months, tl4 including since admission No falls in past 3 months (0 pts) Confusion or Disorientation No (0 pts) Intoxicated or Sedated No (0 pts) Impaired Gait Yes (1 pt) Mobility Assist Device Used No (0 pt) Altered Elimination No (0 pt) Score/Fall Risk Level 0 - 2 = Low Risk Oriented to surroundings, Maintained a safe environment, Educated pt \T\ family on fall prevention, incl call for assistance when getting out of bed, Assessed \T\ reinforced patient's understanding of fall precautions, Provided non-skid footwear, Hourly rounding (assess needs \T\ fall precautionary measures) done, Used ambulatory aids as needed (educated on \T\ assisted with), Used gait belt as appropriate. Assessment: 16:17 Reassessment: No changes from previously documented assessment. Patient and/or family tl4 updated on plan of care and expected duration. Pain level reassessed. Patient is alert, oriented x 3, equal unlabored respirations, skin warm/dry/pink. Vital Signs: 15:36 BP 131 / 58; Pulse 95; Resp 17; Temp 98.2; Pulse Ox 99% ; ap3 15:38 Weight 100.7 kg; Height 5 ft. 6 in. ; Pain 6/10; ap3 16:17 BP 139 / 47; Pulse 93; Resp 18; Pulse Ox 100% on R/A; Pain 6/10; tl4 17:03 BP 126 / 49; Pulse 83; Resp 15; Pulse Ox 100% ; ko1 18:43 BP 138 / 70; Pulse 87; Resp 15; Pulse Ox 100% ; ko1 15:38 Body Mass Index 35.83 (100.70 kg, 167.64 cm) ap3 15:38 Pain Scale: Adult ap3 16:17 Pain Scale: Adult tl4 [place] Coma Score: 16:17 Eye Response: spontaneous(4). Motor Response: obeys commands(6). Verbal Response: tl4 oriented(5). Total: 15. ED Course: 15:27 Patient arrived in ED. mg5 15:28 Ronald Higginbotham PA is PHCP. cp 15:28 Ronald Wallace MD is Attending Physician. cp 15:38 Triage completed. ap3 15:39 Arm band placed on left wrist. ap3 16:18 Patient has correct armband on for positive identification. Placed in gown. Bed in low tl4 position. Call light in reach. Side rails up X2. Provided Education on: ed process. Client placed on continuous cardiac and pulse oximetry monitoring. NIBP monitoring applied. Door closed. Lights dimmed. Moved to private room. Warm blanket given. 16:19 No provider procedures requiring assistance completed. tl4 16:24 XRAY Knee RIGHT 3 view In Process Unspecified. EDMS 16:24 XRAY Hip LEFT 2 view In Process Unspecified. EDMS 16:48 Kay Good, RN is Primary Nurse. ko1 17:08 US Extremity Venous W Compression [place] In Process Unspecified. EDMS 18:11 Nelson Rouse MD is Referral Physician. cp 18:44 Patient did not have IV access during this emergency room visit. ko1 Administered Medications: 16:14 Drug: Ketorolac IM 30 mg IM once Route: IM; Site: right ventrogluteal; tl4 17:29 Drug: Acetaminophen PO 1000 mg PO once Route: PO; ko1 Medication: 16:17 VIS not applicable for this client. tl4 Outcome: 18:12 Discharge ordered by . cp 18:44 Discharged to home ambulatory, ko1 18:44 Condition: stable 18:44 Discharge instructions given to patient, Instructed on discharge instructions, follow up and referral plans. medication usage, Demonstrated understanding of instructions, follow-up care, medications, Prescriptions given X 1, 18:56 Patient left the ED. ko1 Signatures: Dispatcher [employer] EDPR Ronald Higginbotham PA PA cp Prokisch, Amanda, RN RN ap3 Kay Good, RN RN ko1 [address] mg5 Mohan Roy tl4
--- NOTE | 2023-03-07 18:13 | EDPHYS ---
Physician Documentation [facility] Name: Gloria Booker Age: 67 yrs Sex: Female : 1955 Arrival Date: 03/07/2023 Time: 15:23 Bed 7 Private MD: ED Physician Ronald Wallace HPI: 03/07 16:00 This 67 yrs old Female presents to ER via Ambulatory with complaints of Leg Pain. cp 16:00 The patient presents with pain. The complaints affect the left hip medial aspect of cp left thigh and left quadriceps, right knee. 16:00 Patient is a 67-year-old female with past medical history significant for hypertension, cp hyperlipidemia and arthritis who presents to the emergency department with complaints of left upper leg, groin and left hip pain that she has had for several months that has been increasing. She denies any specific injury and also complains of right knee pain that she has had for a while but getting worse. 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 Patient denies any specific injury and reports she has not seen a physician concerning this issue. Historical: - Allergies: 15:38 Sulfa; ap3 - PMHx: 15:38 Arthritis; Hyperlipidemia; Hypertension; ap3 - Immunization history:: Client reports having NOT received the Covid vaccine. Flu vaccine is not up to date. - Social history:: Smoking status: Patient denies any tobacco usage or history of. ROS: 16:05 Constitutional: Negative for body aches, chills, fever, poor PO intake, cp 16:05 Abdomen/GI: Negative for abdominal pain, nausea, vomiting, and diarrhea, cp 16:05 Back: Negative for pain at rest, pain with movement, 16:05 MS/extremity: Positive for pain, of the left hip and left quadriceps and medial aspect of left thigh and right knee , Negative for injury or acute deformity, decreased range of motion, paresthesias, 16:05 Neuro: Negative for altered mental status, headache, 16:05 All other systems are negative, Exam: 16:10 Constitutional: The patient appears in no acute distress, alert, awake, non-toxic, well cp developed, well nourished, obese, uncomfortable, 16:10 Head/Face: Normocephalic, atraumatic. cp 16:10 Eyes: Periorbital structures: appear normal, Sclera: no appreciated abnormality, Lids and lashes: appear normal, bilaterally, 16:10 ENT: External ear(s): are unremarkable, Nose: is normal, Mouth: Lips: moist, Oral mucosa: moist, Posterior pharynx: Airway: no evidence of obstruction, patent, 16:10 Neck: ROM/movement: is normal, is supple, without pain, no range of motions limitations, 16:10 Chest/axilla: Inspection: normal, Palpation: is normal, no crepitus, no tenderness, 16:10 Cardiovascular: Rate: normal, Rhythm: regular, Edema: is not appreciated, 16:10 Respiratory: the patient does not display signs of respiratory distress, Respirations: normal, no use of accessory muscles, no retractions, labored breathing, is not present, Breath sounds: are clear throughout, no decreased breath sounds, no stridor, no wheezing, 16:10 Abdomen/GI: Inspection: abdomen appears normal, Palpation: abdomen is soft and non-tender, in all quadrants, 16:10 Back: pain, is absent, ROM is normal, vertebral tenderness, is not appreciated, 16:10 Musculoskeletal/extremity: Extremities: grossly normal except: noted in the left hip and left quadriceps and medial aspect of left thigh: pain, There is no evidence of decreased ROM, deformity, noted in the right knee: pain, swelling, tenderness, no evidence of decreased ROM, deformity, ROM: limited passive range of motion due to pain, in the right knee and left hip, Weight bearing: able to fully bear weight, 16:10 Skin: no rash present. Vital Signs: 15:36 BP 131 / 58; Pulse 95; Resp 17; Temp 98.2; Pulse Ox 99% ; ap3 15:38 Weight 100.7 kg; Height 5 ft. 6 in. ; Pain 6/10; ap3 16:17 BP 139 / 47; Pulse 93; Resp 18; Pulse Ox 100% on R/A; Pain 6/10; tl4 17:03 BP 126 / 49; Pulse 83; Resp 15; Pulse Ox 100% ; ko1 18:43 BP 138 / 70; Pulse 87; Resp 15; Pulse Ox 100% ; ko1 15:38 Body Mass Index 35.83 (100.70 kg, 167.64 cm) ap3 15:38 Pain Scale: Adult ap3 16:17 Pain Scale: Adult tl4 [place] Coma Score: 16:17 Eye Response: spontaneous(4). Motor Response: obeys commands(6). Verbal Response: tl4 oriented(5). Total: 15. MDM: 15:45 Patient medically screened. cp 18:11 Data reviewed: vital signs, nurses notes, radiologic studies, plain films, ultrasound. cp 18:11 Differential diagnosis: strain, djd, dvt. I considered the following discharge cp prescriptions or medication management in the emergency department Medications were administered in the Emergency Department. See MAR. Care significantly affected by the following chronic conditions: Hypertension. Counseling: I had a detailed discussion with the patient and/or guardian regarding the historical points, exam findings, and any diagnostic results supporting the discharge/admit diagnosis, radiology results, the need for outpatient follow up, for definitive care, a orthopedic surgeon, to return to the emergency department if symptoms worsen or persist or if there are any questions or concerns that arise at home. Response to treatment: the patient's symptoms have markedly improved after treatment, and as a result, I will discharge patient. 03/07 15:53 Order name: US Extremity Venous W Compression [place]; Complete Time: 17:22 cp 03/07 17:22 Interpretation: Report reviewed. cp 03/07 15:53 Order name: XRAY Knee RIGHT 3 view; Complete Time: 17:22 cp 03/07 17:23 Interpretation: Report reviewed. cp 03/07 15:53 Order name: XRAY Hip LEFT 2 view; Complete Time: 17:22 cp 03/07 17:23 Interpretation: Report reviewed. cp Administered Medications: 16:14 Drug: Ketorolac IM 30 mg IM once Route: IM; Site: right ventrogluteal; tl4 17:29 Drug: Acetaminophen PO 1000 mg PO once Route: PO; ko1 Disposition Summary: 03/07/23 18:12 Discharge Ordered Notes: Location: Home cp Problem: an ongoing problem cp Symptoms: have improved cp Condition: Stable cp Diagnosis - Pain in right knee cp - Pain in left hip cp - Pain in leg, unspecified cp Followup: cp - With: Nelson Rouse MD - When: 1 week - Reason: Recheck today's complaints Discharge Instructions: - Discharge Summary Sheet cp - Joint Pain cp - Arthritis cp - How to Use a Knee Brace cp Forms: - Medication Reconciliation Form cp - Thank You Letter cp - Antibiotic Education cp - Prescription Opioid Use cp - Patient Portal Instructions cp - Leadership Thank You Letter cp - Work release form jb4 Prescriptions: - Mobic 7.5 mg Oral tablet - take 1 tablet ORAL route once daily take with food; 30 tablet; Refills: 0, cp Product Selection Permitted Signatures: Dispatcher [employer] Ronald Dillard PA PA cp Prokisch, Amanda RN RN ap3 Kay Good RN RN ko1 Mohan Roy tl4
[2023-03-07 19:55] VITALS: BP 138/70; TEMP 98.2; O2SAT 100
== END ==
LOC: ER 15:23
DX: M79.605 Pain in left leg (principal); M25.552 Pain in left hip; M25.561 Pain in right knee; I10 Essential (primary) hypertension; E78.5 Hyperlipidemia, unspecified; M19.90 Unspecified osteoarthritis, unspecified site
CPT/HCPCS: 93970; 96372; 99284

== ENCOUNTER 2024-11-03 13:03 | Inpatient (IN) | payer BC, OTHER ==
[2024-11-03 15:24] LABS: Absolute Lymphocytes (CBC) 2.0 K/uL (0.7-4.9); Hematocrit 34.7 % (36.0-45.0); Hemoglobin 11.9 g/dL (12.0-15.0); MCH 31.8 pg (27.0-35.0); MCHC 34.3 g/dL (32.0-36.0); MCV 92.7 fL (80-100); MPV 7.7 fL (7.6-11.3); Nucleated RBC Absolute Count 0.0 (0-0); Nucleated Red Blood Cells % 0.1 % (0-0); RBC Red Blood Cell Count 3.74 M/uL (3.86-4.86); White Blood Count 7.90 thou/uL (4.3-10.9)
--- NOTE | 2024-11-03 15:24 | RAD REPORT ---
EXAM: Chest Single View HISTORY: 68 years Female ABDOMINAL DISTENTION COMPARISON: No prior exams FINDINGS: LUNGS/PLEURA: The lungs are clear. No pleural effusions or pneumothorax. No pulmonary edema. CARDIAC/MEDIASTINUM: The cardiac silhouette is within normal limits. UPPER ABDOMEN: No significant abnormality. BONES: No acute abnormality. LINES/TUBES/OTHER: N/A IMPRESSION: No evidence of acute cardiopulmonary disease.
[2024-11-03 15:37] LABS: PT Prothrombin Time 13.5 SECONDS (10-13.0); Protime INR 1.2
[2024-11-03 15:37] LABS: Sqamous Epithelial <5 /HPF (None Seen); Urine Culture Reflex Order NOT NEEDED; Urine Microscopic Reflex YN ORDER UMIC
[2024-11-03 15:52] LABS: ALT/SGPT 25.0 U/L (13-56); AST/SGOT 22.0 U/L (15-37); Albumin 3.5 g/dL (3.4-5.0); Albumin/Globulin Ratio 1.0 (1.1-1.8); Alkaline Phosphatase 131.0 U/L (45-117); Anion Gap 9.3 mEq/L (5.0-15.0); BUN Blood Urea Nitrogen 17.0 mg/dL (7-18); Bilirubin Indirect, Calculated 0.6 mg/dL (0.2-0.8); Globulin 3.6 g/dL (2.3-3.5); Glucose Level 98.0 mg/dL (74-106); Lipase 24.0 U/L (13-75); Magnesium 2.4 mg/dL (1.6-2.4); NT PRO-BNP 486.0 pg/mL (<125); Potassium 3.3 mEq/L (3.5-5.1); Troponin High Sensitivity 4.7 pg/mL (<58.9)
[2024-11-03] MEDS ORDERED: FAMOTIDINE 20 MG/2 ML VIAL IV ONE (16:21)
[2024-11-03] MEDS ORDERED: ONDANSETRON 4 MG/2 ML VIAL ONE (16:21)
[2024-11-03] MEDS ORDERED: MORPHINE 2 MG/ML SYR ONE (16:21)
[2024-11-03] MEDS ORDERED: NA CHLORIDE 0.9% 1,000 ML ONE (16:22)
[2024-11-03] MEDS ORDERED: PIPERACIL/TAZO 3.375 GM VIAL IV ONE (16:22)
[2024-11-03] MEDS ORDERED: NA CHLORIDE 0.9% 100 ML ONE (16:22)
--- NOTE | 2024-11-03 17:25 | EDPHYS ---
Physician Documentation [facility] Name: Gloria Booker Age: 68 yrs Sex: Female : 1955 Arrival Date: 11/03/2024 Time: 13:03 Bed 26 Private MD: ED Physician Ronald Wallace HPI: 11/03 17:17 This 68 yrs old Female presents to ER via Ambulatory with complaints of az Diarrhea, Bloody Stools. 17:17 The patient presents to the emergency department with nausea, vomiting, abdominal pain, az of the right lower quadrant and left lower quadrant. Onset: The symptoms/episode began/occurred 1 day(s) ago. Possible causes: unknown. The symptoms are aggravated by nothing. Associated signs and symptoms: Pertinent positives: abdominal pain, diarrhea, fever, nausea, vomiting. Severity of symptoms: At their worst the symptoms were moderate in the emergency department the symptoms are unchanged. The patient has not experienced similar symptoms in the past. Historical: - Allergies: 13:24 Sulfa; ll1 13:37 METRONIDAZOLE; ll1 13:37 Flagyl; ll1 - PMHx: 13:24 Arthritis; Hyperlipidemia; Hypertension; ll1 - PSHx: 13:37 hip replacement; hysterectomy; ll1 - Immunization history:: Adult Immunizations up to date. - Infectious Disease History:: Denies. - Social history:: Smoking status: Patient denies any tobacco usage or history of. ROS: 17:18 Constitutional: Negative for fever, chills, and weight loss, Eyes: Negative for injury, az pain, redness, and discharge, ENT: Negative for injury, pain, and discharge, Neck: Negative for injury, pain, and swelling, Cardiovascular: Negative for chest pain, palpitations, and edema, Respiratory: Negative for shortness of breath, cough, wheezing, and pleuritic chest pain, Back: Negative for injury and pain, : Negative for injury, bleeding, discharge, and swelling, MS/Extremity: Negative for injury and deformity, Skin: Negative for injury, rash, and discoloration, Neuro: Negative for headache, weakness, numbness, tingling, and seizure, Psych: Negative for depression, anxiety, suicide ideation, homicidal ideation, and hallucinations, Allergy/Immunology: Negative for hives, rash, and allergies, Endocrine: Negative for neck swelling, polydipsia, polyuria, polyphagia, and marked weight changes, Hematologic/Lymphatic: Negative for swollen nodes, abnormal bleeding, and unusual bruising, 17:18 Abdomen/GI: Positive for abdominal pain, nausea and vomiting, diarrhea, abdominal cramps, rectal bleeding, Exam: 17:18 Constitutional: This is a well developed, well nourished patient who is awake, alert, az and in no acute distress. Head/Face: Normocephalic, atraumatic. Eyes: Pupils equal round and reactive to light, extra-ocular motions intact. Lids and lashes normal. Conjunctiva and sclera are non-icteric and not injected. Cornea within normal limits. Periorbital areas with no swelling, redness, or edema. ENT: Nares patent. No nasal discharge, no septal abnormalities noted. Tympanic membranes are normal and external auditory canals are clear. Oropharynx with no redness, swelling, or masses, exudates, or evidence of obstruction, uvula midline. Mucous membranes moist. Neck: Trachea midline, no thyromegaly or masses palpated, and no cervical lymphadenopathy. Supple, full range of motion without nuchal rigidity, or vertebral point tenderness. No Meningismus. Chest/axilla: Normal chest wall appearance and motion. Nontender with no deformity. No lesions are appreciated. Cardiovascular: Regular rate and rhythm with a normal S1 and S2. No gallops, murmurs, or rubs. Normal PMI, no JVD. No pulse deficits. Respiratory: Lungs have equal breath sounds bilaterally, clear to auscultation and percussion. No rales, rhonchi or wheezes noted. No increased work of breathing, no retractions or nasal flaring. Back: No spinal tenderness. No costovertebral tenderness. Full range of motion. Skin: Warm, dry with normal turgor. Normal color with no rashes, no lesions, and no evidence of cellulitis. MS/ Extremity: Pulses equal, no cyanosis. Neurovascular intact. Full, normal range of motion., bilateral aka Neuro: Awake and alert, GCS 15, oriented to person, place, time, and situation. Cranial nerves II-XII grossly intact. Motor strength 5/5 in all extremities. Sensory grossly intact. Cerebellar exam normal. Normal gait. Psych: Awake, alert, with orientation to person, place and time. Behavior, mood, and affect are within normal limits. 17:18 ECG was reviewed by the Attending Physician. 17:18 Abdomen/GI: Inspection: abdomen appears normal, Bowel sounds: active, Palpation: mild abdominal tenderness, moderate abdominal tenderness, in the right lower quadrant and left lower quadrant, Liver: no appreciated palpable abnormalities, Hernia: not appreciated, Vital Signs: 13:38 BP 132 / 75; Pulse 89; Resp 17; Temp 98.4; Pulse Ox 99% on R/A; Weight 88.45 kg; Height ll1 5 ft. 6 in. ; Pain 5/10; 17:47 BP 137 / 76; Pulse 84; Resp 16; Pulse Ox 100% on R/A; jb4 18:15 BP 141 / 72; Pulse 74; Resp 16; Pulse Ox 100% on R/A; jb4 13:38 Body Mass Index 31.47 (88.45 kg, 167.64 cm) ll1 13:38 Pain Scale: Adult ll1 MDM: 13:16 Medical Screening Exam initiated az 17:21 Differential diagnosis: Nonspecific abd pain, gastritis, viral gastroenteritis, az gastroenteritis, gastritis, diverticulitis, varices. Data reviewed: vital signs, nurses notes, lab test result(s), EKG, radiologic studies, CT scan, plain films. Consideration of Admission/Observation Patient was admitted/placed on observation. Escalation of care including admission/observation considered. I considered the following discharge prescriptions or medication management in the emergency department Medications were administered in the Emergency Department. See MAR. Independent interpretation of the following test(s) in the Emergency Department EKG: See my EKG interpretation above. Test considered but Not performed: Ultrasound no abd usg. Historians other than the Patient: Daughter/Son: daughter informed, dr ferreira sent to er. Care significantly affected by the following chronic conditions: Hypertension, Obesity, oa. Counseling: I had a detailed discussion with the patient and/or guardian regarding the historical points, exam findings, and any diagnostic results supporting the discharge/admit diagnosis, lab results, radiology results, the need for further work-up and treatment in the hospital. 11/03 13:18 Order name: Basic Metabolic Panel; Complete Time: 17:[address] [facility] 11/03 13:18 Order name: CBC with Diff; Complete Time: 17:[address] [facility] 11/03 13:18 Order name: LFT's; Complete Time: 17:[address] [facility] 11/03 13:18 Order name: Magnesium; Complete Time: 17:[address] [facility] 11/03 13:18 Order name: NT PRO-BNP; Complete Time: 17:[address] [facility] 11/03 13:18 Order name: PT-INR; Complete Time: 17:[address] [facility] 11/03 13:18 Order name: Troponin HS; Complete Time: 17:[address] [facility] 11/03 13:18 Order name: Lipase; Complete Time: 17:[address] [facility] 11/03 13:18 Order name: UA Rfx Albert Cult if indicated; Complete Time: 17:[address] [facility] 11/03 13:18 Order name: Fecal Leukocyte Stain [facility] 11/03 13:18 Order name: Stool Culture [facility] 11/03 13:18 Order name: Lactate w/ 2H reflex if indic.; Complete Time: 17:[address] [facility] 11/03 13:18 Order name: XRAY Chest (1 view); Complete Time: 17:[address] [facility] 11/03 13:18 Order name: CT Abd/Pelvis - IV Contrast Only; Complete Time: 17:[address] [facility] 11/03 17:32 Order name: CONS Physician Consult EDMO 11/03 13:18 Order name: Cardiac monitoring; Complete Time: 17:[address] [facility] 11/03 13:18 Order name: EKG - Nurse/Tech; Complete Time: 17:[address] [facility] 11/03 13:18 Order name: IV Saline Lock; Complete Time: 15:[address] [facility] 11/03 13:18 Order name: Labs collected and sent; Complete Time: 15:[address] [facility] 11/03 13:18 Order name: O2 Per Protocol; Complete Time: 15:[address] [facility] 11/03 13:18 Order name: O2 Sat Monitoring; Complete Time: 15:[address] [facility] EC:18 Rate is 77 beats/min. Rhythm is regular. QRS [place] is Normal. CO interval is normal. QRS az interval is normal. QT interval is normal. No Q waves. T waves are Normal. No ST changes noted. Clinical impression: Normal ECG and No evidence of ischemia. Interpreted by me. Reviewed by me. Administered Medications: 13:48 CANCELLED (Duplicate Order): [id number] mg 200 ml IVPB once over 60 mins az 13:48 CANCELLED (Duplicate Order): [id number] mg 100 ml IVPB at 200 ml/hr once over 30 az mins 17:08 Drug: NS 0.9% IV 1000 ml IV at 1000 ml once; to be given as a bolus over 60 minutes jb4 Route: IV; Rate: 1000 ml; Site: left antecubital; 18:00 Follow up: Response: No adverse reaction; IV Status: Completed infusion; IV Intake: jb4 1000ml 17:08 Drug: Famotidine IVP 20 mg IVP once; dilute with 10 mL 0.9% NaCl; give over 2 minutes jb4 Route: IVP; Site: left antecubital; 17:30 Follow up: Response: No adverse reaction; Marked relief of symptoms jb4 17:08 Drug: Ondansetron IVP 4 mg IVP once; over 2 minutes Route: IVP; Site: left antecubital; jb4 17:30 Follow up: Response: No adverse reaction; Marked relief of symptoms jb4 17:08 Drug: morphine IVP or IV 2 mg IVP once over 4 mins Route: IVP; Infused Over: 4 mins; jb4 Site: left antecubital; 17:30 Follow up: Response: No adverse reaction; Marked relief of symptoms; Pain is decreased jb4 17:47 Drug: Piperacillin-Tazobactam IVPB 3.375 grams IVPB once over 60 mins; (mix in NS 100 jb4 mL) Route: IVPB; Infused Over: 60 mins; Site: left antecubital; 18:47 Follow up: Response: No adverse reaction; IV Status: Completed infusion; IV Intake: jb4 100ml 17:48 Not Given (Patient Refused): morphineor iv 2 mg IVP once over 4 mins jb4 Disposition Summary: 11/03/24 17:24 Hospitalization Ordered Notes: Hospitalization Status: Inpatient Admission az Provider: Ramon Ferreira cha [facility] az Condition: Fair az Problem: new az Symptoms: have improved az Bed/Room Type: Standard az Room Assignment: 425(11/03/24 18:14) ss Diagnosis - Abdominal tenderness az - Left sided colitis with rectal bleeding - colitis sigmoid and rectum az - Hypokalemia az - UTI/ Urinary tract infection, site not specified az Forms: - Medication Reconciliation Form az - SBAR form az - Leadership Thank You Letter az Signatures: Dispatcher [employer] Tia Elizabeth Corey, MD MD cha Blanchard, Shelby, RN RN Jerry Farr RN RN jb4 Clifford, Lynsay, RN RN ll1 Corrections: (The following items were deleted from the chart) 13:19 13:19 BASIC METABOLIC PANEL+C.LAB.BRZ ordered. EDMS EDMS 13:19 13:19 CBC+H.LAB.BRZ ordered. EDMS EDMS 13:19 13:19 HEPATIC FUNCTION+C.LAB.BRZ ordered. EDMS EDMS 13:19 13:19 MAGNESIUM+C.LAB.BRZ ordered. EDMS EDMS 13:19 13:19 PROBNP+C.LAB.BRZ ordered. EDMS EDMS 13:19 13:19 PROTIME (+INR)+COAG.LAB.BRZ ordered. EDMS EDMS 13:19 13:19 Troponin High Sensitivity+C.LAB.BRZ ordered. EDMS EDMS 13:19 13:19 LIPASE+C.LAB.BRZ ordered. EDMS EDMS 13:19 13:19 UA Rfx Albert Cult if indicated+U.LAB.BRZ ordered. EDMS EDMS 13:19 13:19 Fecal Leukocyte Stain+BA.LAB.BRZ ordered. EDMS EDMS 13:19 13:19 Stool Culture+BA.LAB.BRZ ordered. EDMS EDMS 13:19 13:19 LACTATE+C.LAB.BRZ ordered. EDMS EDMS 13:19 13:19 Chest Single View+RAD.RAD.BRZ ordered. EDMS EDMS 13:19 13:19 Abdomen Pelvis W Con+CT.RAD.BRZ ordered. EDMS EDMS 13:48 13:18 Ciprofloxacin IVPB 400 mg 200 ml IVPB once over 60 mins ordered. za az 13:48 13:18 metroNIDAZOLE IVPB 500 mg 100 ml IVPB at 200 ml/hr once over 30 mins ordered. az az 17:36 17:24 az bd 18:14 17:36 404 bd ss
--- NOTE | 2024-11-03 17:25 | ER ---
Nurse's Notes [facility] Name: Gloria Booker Age: 68 yrs Sex: Female : 1955 Arrival Date: 11/03/2024 Time: 13:03 Bed 26 Private MD: Diagnosis: Abdominal tenderness;Left sided colitis with rectal bleeding-colitis sigmoid and rectum;Hypokalemia;UTI/ Urinary tract infection, site not specified Presentation: 11/03 13:38 Chief complaint: Patient states: N/V/D with bright red blood in stool started 6 PM ll1 yesterday. Diarrhea still, went to see Dr. Kenney. Sent in for evaluation. Fever was 101.2 earlier today. Coronavirus screen: Client denies travel out of the [place] in the last 14 days. At this time, the client does not indicate any symptoms associated with coronavirus-19. Ebola Screen: Patient denies travel to an Ebola-affected area in the 21 days before illness onset. Initial Sepsis Screen: Does the patient meet any 2 criteria? No. Patient's initial sepsis screen is negative. Does the patient have a suspected source of infection? No. Patient's initial sepsis screen is negative. Risk Assessment: Do you want to hurt yourself or someone else? Patient reports no desire to harm self or others. Onset of symptoms was November 02, 2024. 13:38 Method Of Arrival: Ambulatory ll1 13:38 Acuity: SHARON 3 ll1 Triage Assessment: 13:38 General: Appears uncomfortable, Behavior is calm, cooperative, appropriate for age. ll1 Pain: Complains of pain in abdomen Quality of pain is described as aching, crampy. GI: Reports lower abdominal pain, upper abdominal pain, diarrhea, rectal bleeding, nausea, vomiting. Historical: - Allergies: 13:24 Sulfa; ll1 13:37 METRONIDAZOLE; ll1 13:37 Flagyl; ll1 - PMHx: 13:24 Arthritis; Hyperlipidemia; Hypertension; ll1 - PSHx: 13:37 hip replacement; hysterectomy; ll1 - Immunization history:: Adult Immunizations up to date. - Infectious Disease History:: Denies. - Social history:: Smoking status: Patient denies any tobacco usage or history of. Screenin:46 [facility] ED Fall Risk Assessment (Adult) History of falling in the last 3 months, jb4 including since admission No falls in past 3 months (0 pts) Confusion or Disorientation No (0 pts) Intoxicated or Sedated No (0 pts) Impaired Gait No (0 pts) Mobility Assist Device Used Yes (1 pt) Altered Elimination No (0 pt) Score/Fall Risk Level 0 - 2 = Low Risk Oriented to surroundings, Maintained a safe environment. Abuse screen: Denies threats or abuse. Nutritional screening: No deficits noted. Tuberculosis screening: No symptoms or risk factors identified. Assessment: 15:46 Reassessment: Patient and/or family updated on plan of care and expected duration. Pain ll1 level reassessed. 16:30 Reassessment: Patient appears in no apparent distress at this time. Patient and/or jb4 family updated on plan of care and expected duration. Pain level reassessed. Patient is alert, oriented x 3, equal unlabored respirations, skin warm/dry/pink. 17:47 Reassessment: Patient appears in no apparent distress at this time. Patient and/or jb4 family updated on plan of care and expected duration. Pain level reassessed. Patient is alert, oriented x 3, equal unlabored respirations, skin warm/dry/pink. 18:45 Reassessment: Patient appears in no apparent distress at this time. Patient and/or jb4 family updated on plan of care and expected duration. Pain level reassessed. Patient is alert, oriented x 3, equal unlabored respirations, skin warm/dry/pink. 19:15 Reassessment: Patient appears in no apparent distress at this time. Patient and/or jb4 family updated on plan of care and expected duration. Pain level reassessed. Patient is alert, oriented x 3, equal unlabored respirations, skin warm/dry/pink. Vital Signs: 13:38 BP 132 / 75; Pulse 89; Resp 17; Temp 98.4; Pulse Ox 99% on R/A; Weight 88.45 kg; Height ll1 5 ft. 6 in. ; Pain 5/10; 17:47 BP 137 / 76; Pulse 84; Resp 16; Pulse Ox 100% on R/A; jb4 18:15 BP 141 / 72; Pulse 74; Resp 16; Pulse Ox 100% on R/A; jb4 13:38 Body Mass Index 31.47 (88.45 kg, 167.64 cm) ll1 13:38 Pain Scale: Adult ll1 ED Course: 13:06 Patient arrived in ED. im 13:15 Ronald Wallace MD is Attending Physician. az 13:24 Arm band placed on. ll1 13:41 Triage completed. ll1 14:51 XRAY Chest (1 view) In Process Unspecified. EDMS 15:12 Radiology exam delayed due to lab results not completed at this time. (BUN/Creatinine) jc4 IV insertion attempt and/or patient not having appropriate IV at this time. 15:15 Initial lab(s) drawn, by laborer electroplating, sent to lab. Inserted saline lock: 20 gauge in right ts3 antecubital area, using aseptic technique. Blood collected. Flushed with 10 mL NS. 15:46 Patient placed in an exam room, on a stretcher. ll1 16:00 Jerry Farr, RN is Primary Nurse. jb4 16:34 Note: New IV started in Left AC, Right AC IV not allowing injection in CT. . ls3 16:36 CT Abd/Pelvis - IV Contrast Only In Process Unspecified. EDMS 17:23 Ramon Kenney MD is Hospitalizing Provider. az 18:46 Patient has correct armband on for positive identification. Bed in low position. Call jb4 light in reach. Side rails up X 1. Provided Education on: plan of care. 18:46 No provider procedures requiring assistance completed. Patient admitted, IV remains in jb4 place. Administered Medications: 13:48 CANCELLED (Duplicate Order): [id number] mg 200 ml IVPB once over 60 mins az 13:48 CANCELLED (Duplicate Order): [id number] mg 100 ml IVPB at 200 ml/hr once over 30 az mins 17:08 Drug: NS 0.9% IV 1000 ml IV at 1000 ml once; to be given as a bolus over 60 minutes jb4 Route: IV; Rate: 1000 ml; Site: left antecubital; 18:00 Follow up: Response: No adverse reaction; IV Status: Completed infusion; IV Intake: jb4 1000ml 17:08 Drug: Famotidine IVP 20 mg IVP once; dilute with 10 mL 0.9% NaCl; give over 2 minutes jb4 Route: IVP; Site: left antecubital; 17:30 Follow up: Response: No adverse reaction; Marked relief of symptoms jb4 17:08 Drug: Ondansetron IVP 4 mg IVP once; over 2 minutes Route: IVP; Site: left antecubital; jb4 17:30 Follow up: Response: No adverse reaction; Marked relief of symptoms jb4 17:08 Drug: morphine IVP or IV 2 mg IVP once over 4 mins Route: IVP; Infused Over: 4 mins; jb4 Site: left antecubital; 17:30 Follow up: Response: No adverse reaction; Marked relief of symptoms; Pain is decreased jb4 17:47 Drug: Piperacillin-Tazobactam IVPB 3.375 grams IVPB once over 60 mins; (mix in NS 100 jb4 mL) Route: IVPB; Infused Over: 60 mins; Site: left antecubital; 18:47 Follow up: Response: No adverse reaction; IV Status: Completed infusion; IV Intake: jb4 100ml 17:48 Not Given (Patient Refused): morphineor iv 2 mg IVP once over 4 mins jb4 Medication: 19:15 VIS not applicable for this client. jb4 Intake: 18:00 IV: 1000ml; Total: 1000ml. jb4 18:47 IV: 100ml; Total: 1100ml. jb4 Outcome: 17:24 Decision to Hospitalize by Provider. az 19:15 Admitted to Tele accompanied by tech, via wheelchair, room 425, with chart, jb4 19:15 Condition: stable 19:15 Discharge instructions given to patient, Instructed on the need for admit, Demonstrated understanding of instructions, 19:39 Patient left the ED. jb4 Signatures: Dispatcher [employer] EDRonald Bates MD MD cha Bryson, James RN RN jb4 Jess Rodriguez ls3 Karlos Horton RN RN ll1 Farideh Burleson Justin jc4 Yenny Burkett ts3
--- NOTE | 2024-11-03 17:27 | RAD REPORT ---
EXAMINATION: Abdomen Pelvis W Contrast CLINICAL INDICATION: Female, 68 years old.ABD PAIN TECHNIQUE: CT abdomen and pelvis was performed, after the administration of IV contrast, as per [facility] protocol. Axial, sagittal and coronal reconstructions were obtained. One or more of the following dose reduction techniques were used: Automated exposure control, adjustment of the mA and/o r kV according to patient size, and/or iterative reconstruction. Unless otherwise specified, incidental findings do not require dedicated imaging follow-up. [id number]. COMPARISON: 04/13/2016 FINDINGS: LOWER CHEST: No acute process identified.No significant pericardial effusion. UPPER GI: No significant abnormality. LIVER: No significant focal abnormality. GALLBLADDER/BILE DUCTS: No biliary ductal dilatation.? PANCREAS: No mass, ductal dilation, or seb-pancreatic fluid. SPLEEN: Unremarkable. ADRENALS: No adrenal masses. KIDNEYS AND URETERS: No hydronephrosis.No suspicious renal mass.No renal calculi. ABDOMINAL AORTA AND OTHER VESSELS: Mild atherosclerotic changes. PERITONEUM: Nonspecific free fluid. LYMPH NODES: No pathologic lymphadenopathy. ABDOMINAL WALL: Unremarkable SMALL BOWEL/COLON: Pronounced wall thickening involving the distal descending colon extending to the rectum with mucosal hyperenhancement and pericolonic and perirectal edema. The sigmoid is most pronounced.Nonvisualized appendix but no secondary signs of acute appendicitis. URINARY BLADDER: Underdistended but grossly unremarkable. REPRODUCTIVE ORGANS: Uterus surgically absent. No adnexal abnormality. MUSCULOSKELETAL: No acute or suspicious osseous abnormality. ADDITIONAL FINDINGS: None. IMPRESSION: Moderate to severe colitis extending from the distal descending colon to the rectum with most pronoun ike changes at the sigmoid. This could be infectious, inflammatory, as well as ischemic.
[2024-11-03] MEDS ORDERED: ONDANSETRON 4 MG/2 ML VIAL IV PRN (19:59)
[2024-11-03] MEDS ORDERED: FAMOTIDINE 20 MG/2 ML VIAL IV SCH (21:00)
[2024-11-03] MEDS: MORPHINE 4 MG/ML SYR IV PRN (21:17)
[2024-11-03] MEDS: D5 0.45 NS 1,000 ML IV SCH (21:18)
[2024-11-04] MEDS: PIPER TAZO 3.375 GM in NA CHLORIDE 0.9% 100 ML IV SCH (01:03)
[2024-11-04] MEDS: ACETAMINOPHEN 325 MG TABLET PO PRN (04:00)
[2024-11-04 05:04] LABS: Absolute Lymphocytes (CBC) 2.1 K/uL (0.7-4.9); Hematocrit 32.1 % (36.0-45.0); Hemoglobin 11.0 g/dL (12.0-15.0); MCH 32.0 pg (27.0-35.0); MCHC 34.3 g/dL (32.0-36.0); MCV 93.4 fL (80-100); MPV 7.9 fL (7.6-11.3); Nucleated RBC Absolute Count 0.0 (0-0); Nucleated Red Blood Cells % 0.1 % (0-0); RBC Red Blood Cell Count 3.44 M/uL (3.86-4.86); White Blood Count 6.20 thou/uL (4.3-10.9)
[2024-11-04 05:23] LABS: ALT/SGPT 19.0 U/L (13-56); AST/SGOT 17.0 U/L (15-37); Albumin 3.2 g/dL (3.4-5.0); Albumin/Globulin Ratio 1.0 (1.1-1.8); Alkaline Phosphatase 111.0 U/L (45-117); Anion Gap 8.8 mEq/L (5.0-15.0); BUN Blood Urea Nitrogen 13.0 mg/dL (7-18); Bilirubin Indirect, Calculated 0.6 mg/dL (0.2-0.8); Globulin 3.2 g/dL (2.3-3.5); Glucose Level 109.0 mg/dL (74-106); Lipase 22.0 U/L (13-75); Potassium 3.8 mEq/L (3.5-5.1)
[2024-11-04] MEDS: FAMOTIDINE 20 MG TAB PO SCH (08:19)
[2024-11-04] MEDS: ATORVASTATIN 20 MG TAB PO SCH (08:22)
--- NOTE | 2024-11-04 13:16 | P.HP ---
Patient History Date of Service: 11/04/24 Reason for admission: ABDOMEN PAIN, FEVER AND LOWER GI BLEED. History of Present Illness: GILL HAS HAD COLONOSCOPY THIS YEAR IN FEBRUARY. SHE COMES TO OFFICE YESTERDAY WITH HIGH FEVER, ABDOMEN PAIN AND LOWER GI BLEED FOR A DAY. WE ASKED HER TO GO TO ER. ER MD FOUND HER TO HAVE ACUTE COLITIS. SHE IS IN FOR IV ABX. I ASKED NURSE TO COLLECT C DIFF TEST FOR STOOL. IT IS NOT DONE YET. Allergies Sulfa (Sulfonamide Antibiotics) [Sulfa(Sulfonamide Antibiotics)] Allergy (Mild, Verified 07/18/18 04:12) Hives metronidazole [From Flagyl] Allergy (Verified 01/10/22 13:07) Hives Home Medications: Atorvastatin Calcium 20 mg PO DAILY 11/10/20 Carvedilol [Coreg] 3.125 mg PO BID 11/10/20 Famotidine [Pepcid] 20 mg PO DAILY 11/10/20 Azithromycin 250 mg PO DAILY 01/10/22 - Past Medical/Surgical History Has patient received pneumonia vaccine in the past: No Diabetic: No -: Arthritis -: HTN -: Appendectomy -: Rotator cuff sx - Social History Smoking Status: Never smoker Alcohol use: No CD- Drugs: No Caffeine use: No Place of Residence: Home Review of Systems 10-point ROS is otherwise unremarkable Gastrointestinal: Abdominal Pain, As per HPI Physical Examination - Vital Signs Temperature: 97.7 F Blood Pressure: 121/59 Pulse: 66 Respirations: 16 Pulse Ox (%): 100 - Physical Exam General: Alert, In no apparent distress HEENT: Atraumatic, PERRLA, Mucous membr. moist/pink, EOMI, Sclerae nonicteric Neck: Supple, 2+ carotid pulse no bruit, No LAD, Without JVD or thyroid abnormality Respiratory: Clear to auscultation bilaterally, Normal air movement Cardiovascular: Regular rate/rhythm, Normal S1 S2 Gastrointestinal: Normal bowel sounds, No tenderness Musculoskeletal: No tenderness Integumentary: No rashes Neurological: Normal gait, Normal speech, Normal strength at 5/5 x4 extr, Normal tone, Normal affect Lymphatics: No axilla or inguinal lymphadenopathy - Studies Laboratory Data (last 24 hrs) 11/03/24 11/03/24 11/03/24 15:08 15:08 15:08 WBC 7.90 Hgb 11.9 L Hct 34.7 L Plt Count 238 PT 13.5 H INR 1.20 Sodium 139 Potassium 3.3 L BUN 17 Creatinine 0.96 Glucose 98 Magnesium 2.4 Total Bilirubin 0.8 AST 22 ALT 25 Alkaline Phosphatase 131 H Lipase 24 Assessment and Plan - Problems (Diagnosis) (1) Acute hemorrhagic colitis Current Visit: Yes Status: Acute Plan: SHE IS BETTER ALREADY. SHE MAY GO HOME IN AM. C DIFF PENDING. IV ABX NOTIFY DR. VALIENTE HER REGULAR GI MD. DR. KELLEY CALLED BUT HE IS NOT SEEING HER ROUTINELY. SHE CAN DO OUTPATIENT BENÍTEZ. - Advance Directives Does patient have a Living Will: No Does patient have a Durable POA for Healthcare: No
--- NOTE | 2024-11-05 13:01 | P.PN ---
Subjective Date of Service: 11/05/24 Chief Complaint: ABDOMEN PAIN, FEVER AND LOWER GI BLEED. Subjective: Improving SHE HAS NO MORE BLEEDING PER RECTUM OR FEVER. SHE HAS SOME PAIN IN ABDOMEN, NOT IMPROVED YET. Review of Systems 10-point ROS is otherwise unremarkable General: Weakness Gastrointestinal: Abdominal Pain Physical Examination - Vital Signs Temperature: 98.1 F Blood Pressure: 145/65 Pulse: 69 Respirations: 16 Pulse Ox (%): 99 - Physical Exam General: Mild distress, Moderate distress HEENT: Atraumatic, PERRLA, EOMI Neck: Supple, JVD not distended Respiratory: Clear to auscultation bilaterally, Normal air movement Cardiovascular: Regular rate/rhythm, Normal S1 S2 Gastrointestinal: Normal bowel sounds, No tenderness Musculoskeletal: No tenderness Integumentary: No rashes Neurological: Normal speech, Normal tone, Normal affect Lymphatics: No axilla or inguinal lymphadenopathy - Studies Medications List Reviewed: Yes Assessment And Plan - Current Problems (Diagnosis) (1) Acute hemorrhagic colitis Current Visit: Yes Status: Acute Plan: SHE IS BETTER ALREADY. SHE MAY GO HOME IN AM. C DIFF PENDING. IV ABX NOTIFY DR. VALIENTE HER REGULAR GI MD. DR. KELLEY CALLED BUT HE IS NOT SEEING HER ROUTINELY. SHE CAN DO OUTPATIENT BENÍTEZ. PROGNOSIS IS FAIR SHE SHOULD BE ABLE TO GO HOME IN AM. SHE HAS NO MORE DIARRHEA SO WE CAN'T COLLECT STOOL SAMPLE FOR C DIFF.
[2024-11-05 23:10] VITALS: BMI 33.0
[2024-11-06] MEDS: VANCOMYCIN HCL 125 MG CAPSULE PO SCH (08:29)
--- NOTE | 2024-11-06 12:56 | P.PN ---
Subjective Date of Service: 11/06/24 Chief Complaint: ABDOMEN PAIN, FEVER AND LOWER GI BLEED. Subjective: No new changes SHE HAS NO MORE BLEEDING PER RECTUM OR FEVER. SHE HAS SOME PAIN IN ABDOMEN, NOT IMPROVED YET. SHE IMPROVED INITIALLY BUT PAIN CONTINUES. SHE HAS MILD LOWER GI B BUT NOT ENOUGH FOR SAMPLE. Review of Systems 10-point ROS is otherwise unremarkable Physical Examination - Vital Signs Temperature: 97.8 F Blood Pressure: 170/67 Pulse: 67 Respirations: 18 Pulse Ox (%): 98 - Physical Exam General: Oriented x3, Mild distress HEENT: Atraumatic, PERRLA, EOMI Neck: Supple, JVD not distended Respiratory: Clear to auscultation bilaterally, Normal air movement Cardiovascular: Regular rate/rhythm, Normal S1 S2 Gastrointestinal: Normal bowel sounds, No tenderness Musculoskeletal: No tenderness Integumentary: No rashes Neurological: Normal speech, Normal tone, Normal affect Lymphatics: No axilla or inguinal lymphadenopathy - Studies Medications List Reviewed: Yes Assessment And Plan - Current Problems (Diagnosis) (1) Acute hemorrhagic colitis Current Visit: Yes Status: Acute Plan: SHE IMPROVED BUT PAIN CONTINUES SHE IS NOT ABLE TO GET C DIFF SAMPLE YET. I CHANGED TO ORAL VANCO WITH CLINICAL SUSPICION AND FAILURE TO IMPROVE ON ZOSYN SHE HAS HAD TWO ANTIBIOTICS IN LAST TWO MONTHS. I WILL BE OUT OF TOWN UNTIL WED AM. I WILL HAVE HOSPITAL DOCTORS COVER. I ALSO TALKED TO DR. VALIENTE TO HAVE HER SEEN. HE IS NOT HOROLOGIST APPRENTICE BUT HE STILL WILL COME.
[2024-11-06] MEDS: PIPER TAZO 3.375 GM in NA CHLORIDE 0.9% 100 ML IV SCH (16:53)
[2024-11-07 10:50] VITALS: O2SAT 100
[2024-11-07 10:58] LABS: Absolute Lymphocytes (CBC) 1.2 K/uL (0.7-4.9); Hematocrit 32.6 % (36.0-45.0); Hemoglobin 11.2 g/dL (12.0-15.0); MCH 32.0 pg (27.0-35.0); MCHC 34.3 g/dL (32.0-36.0); MCV 93.2 fL (80-100); MPV 7.2 fL (7.6-11.3); Nucleated RBC Absolute Count 0.0 (0-0); Nucleated Red Blood Cells % 0.1 % (0-0); RBC Red Blood Cell Count 3.50 M/uL (3.86-4.86); White Blood Count 3.10 thou/uL (4.3-10.9)
[2024-11-07 11:08] LABS: CDIFF INTERNAL NEG CONTROL White Background (WHITE BKGD); STOOL CONSISTENCY Liquid/Semi-Solid
[2024-11-07 11:09] LABS: C.diff Antigen/Toxin Ag neg : Tox neg (NEG : NEG)
[2024-11-07 11:13] LABS: ALT/SGPT 27.0 U/L (13-56); AST/SGOT 25.0 U/L (15-37); Albumin 3.1 g/dL (3.4-5.0); Albumin/Globulin Ratio 1.1 (1.1-1.8); Alkaline Phosphatase 96.0 U/L (45-117); Anion Gap 10.7 mEq/L (5.0-15.0); BUN Blood Urea Nitrogen 9.0 mg/dL (7-18); Globulin 2.9 g/dL (2.3-3.5); Glucose Level 102.0 mg/dL (74-106); Magnesium 2.0 mg/dL (1.6-2.4); Potassium 3.7 mEq/L (3.5-5.1)
--- NOTE | 2024-11-07 12:10 | P.PN ---
Date of Service: 11/07/24 Subjective: Feeling better continues with pain in lower abdomen but improving tolerating diet reports rash to both hands yesterday shortly after starting oral vanc, resolved Physical Exam: Gen: Alert, Oriented, NAD CV: Regular rate and rhythm, no edema Pulm: Nonlabored respirations on room air, clear bilaterally Abdomen: Soft, mild tenderness in ler abdomen, nondistended Problem List: Acute hemorrhagic colitis Leukopenia Hypertension Acute hemorrhagic colitis on admission, presents per Dr. Sofia yan after seen in office for High fever, abdominal pain, lower GI bleed CT abdomen/pelvis (11/03): moderate-severe colitis extending from distal descending colon to the rectum with most pronounced changes at the sigmoid. Continue empiric Zosyn (11/06-) Pain control, IV hydration Pain slowly improving. Tolerating regular diet. C. diff negative. UA not suggestive of UTI. Oral Vanc dc'd due to possible allergic reaction. Dr. Merchant, GI consulted overall improving, anticipate dc home tomorrow on oral augmentin - has sulfa and flagyl allergy. tolerating zosyn without issue Leukopenia Daily labs. Continue to monitor Hypertension confirm home meds, restart as appropriate resume home coreg Dispo: home, likely tomorrow
[2024-11-07] MEDS: MORPHINE 2 MG/ML SYR IV PRN (20:11)
[2024-11-08 04:20] LABS: Hematocrit 29.4 % (36.0-45.0); Hemoglobin 9.9 g/dL (12.0-15.0); MCH 31.6 pg (27.0-35.0); MCHC 33.8 g/dL (32.0-36.0); MCV 93.6 fL (80-100); MPV 7.4 fL (7.6-11.3); RBC Red Blood Cell Count 3.14 M/uL (3.86-4.86); White Blood Count 4.00 thou/uL (4.3-10.9)
[2024-11-08 04:39] LABS: Anion Gap 8.7 mEq/L (5.0-15.0); BUN Blood Urea Nitrogen 11.0 mg/dL (7-18); Glucose Level 94.0 mg/dL (74-106); Magnesium 2.1 mg/dL (1.6-2.4); Potassium 3.7 mEq/L (3.5-5.1)
--- NOTE | 2024-11-08 08:07 | P.DS ---
Admission Date: 11/03/24 Discharge Date: 11/08/24 Disposition: ROUTINE DISCHARGE Discharge Condition: GOOD Reason for Admission: ABDOMEN PAIN, FEVER AND LOWER GI BLEED. Consultations: GI - Dr. Merchant Brief History of Present Illness: Gloria has had colonoscopy this year in February. She comes to the office yesterday with high fever, abdominal pain, and lower GI bleed for a day. We asked her to go to ER. MD found her to have acute colitis. She is in for IV antibiotics. I asked nurse to collect C. Diff test for stool. It is not done yet. Hospital Course: Problem List: Acute hemorrhagic colitis Leukopenia Hypertension Physician discharge instructions: Patient presented with fever, abdominal pain secondary to acute colitis. She was advised to come to the ER by Dr. Kenney after being seen in the office with concern for lower GI bleed. CT abdomen/pelvis on admission was consistent with moderate-severe colitis extending from distal descending colon to the rectum with most pronounced changes at the sigmoid. Patient was started on IV zosyn and had improvement of her symptoms. C. diff was negative 11/06. Her diet was slowly advanced as pain and nausea improved. Her hemoglobin remained stable throughout her hospitalization without the need for blood transfusions. GI was consulted and recommended following up in the office for further management and to discuss outpatient colonoscopy. No findings to warrant further inpatient testing. Patient was feeling better, abdominal pain improving, diarrhea improving, and was deemed stable for discharge. Give her allergy to metronidazole, and tolerated/improved on zosyn, she will be discharged on Augmentin. Patient is to complete 10 more days of oral Augmentin to complete 14 total day course. Of note - after receiving first dose of oral vancomycin, she reported red rash on hands. Oral vancomycin was discontinued, and rash did not reoccur. Medications: Augmentin x10 days zofran prn Over the counter probiotic while taking Augmentin Consider stool softener (colace/docusate) if feeling constipated or having to strain with bowel movements Diet: soft, low fiber Follow up: Dr. Kenney next week Dr. Merchant in next few weeks Please call to schedule / confirm appointments Physical Exam: Gen: Alert, Oriented, NAD CV: Regular rate and rhythm, no edema Pulm: Nonlabored respirations on room air, clear bilaterally Abdomen: Soft, nontender, nondistended Vital Signs/Physical Exam: Temp Pulse Resp BP Pulse Ox 97.8 F 68 18 148/80 H 97 11/08/24 03:50 11/08/24 03:50 11/08/24 03:50 11/08/24 03:50 11/08/24 03:50 Laboratory Data at Discharge: WBC 4.00 thou/uL (4.3-10.9) L 11/08/24 04:08 Hgb 9.9 g/dL (12.0-15.0) L D 11/08/24 04:08 Hct 29.4 % (36.0-45.0) L 11/08/24 04:08 Plt Count 178 thou/uL (152-406) 11/08/24 04:08 PT 13.5 SECONDS (10-13.0) H 11/03/24 15:08 INR 1.20 11/03/24 15:08 Sodium 142 mEq/L (136-145) 11/08/24 04:08 Potassium 3.7 mEq/L (3.5-5.1) 11/08/24 04:08 BUN 11 mg/dL (7-18) 11/08/24 04:08 Creatinine 1.12 mg/dL (0.55-1.02) H 11/08/24 04:08 Glucose 94 mg/dL (74-106) 11/08/24 04:08 Magnesium 2.1 mg/dL (1.6-2.4) 11/08/24 04:08 Total Bilirubin 0.4 mg/dL (0.2-1.0) 11/07/24 10:40 AST 25 U/L (15-37) 11/07/24 10:40 ALT 27 U/L (13-56) 11/07/24 10:40 Alkaline Phosphatase 96 U/L (45-117) 11/07/24 10:40 Lipase 22 U/L (13-75) 11/04/24 04:31 Home Medications: Atorvastatin Calcium 20 mg PO DAILY 11/10/20 Carvedilol [Coreg] 3.125 mg PO BID 11/10/20 Famotidine [Pepcid] 20 mg PO DAILY 11/10/20 Amox/Clavulanate [Augmentin 875-125 Tab] 1 tab PO BID 10 Days #20 tab 11/08/24 Ondansetron [Zofran] 4 mg PO Q8H PRN #10 tab 11/08/24 New Medications: Amox/Clavulanate [Augmentin 875-125 Tab] 1 tab PO BID 10 Days #20 tab Ondansetron [Zofran] 4 mg PO Q8H PRN #10 tab PRN Reason: Nausea / Vomiting Physician Discharge Instructions: Physician discharge instructions: Patient presented with fever, abdominal pain secondary to acute colitis. She was advised to come to the ER by Dr. Kenney after being seen in the office with concern for lower GI bleed. CT abdomen/pelvis on admission was consistent with moderate-severe colitis extending from distal descending colon to the rectum with most pronounced changes at the sigmoid. Patient was started on IV zosyn and had improvement of her symptoms. C. diff was negative 11/06. Her diet was slowly advanced as pain and nausea improved. Her hemoglobin remained stable throughout her hospitalization without the need for blood transfusions. GI was consulted and recommended following up in the office for further management and to discuss outpatient colonoscopy. No findings to warrant further inpatient testing. Patient was feeling better, abdominal pain improving, diarrhea improving, and was deemed stable for discharge. Give her allergy to metronidazole, and tolerated/improved on zosyn, she will be discharged on Augmentin. Patient is to complete 10 more days of oral Augmentin to complete 14 total day course. Of note - after receiving first dose of oral vancomycin, she reported red rash on hands. Oral vancomycin was discontinued, and rash did not reoccur. Medications: Augmentin x10 days zofran prn Diet: soft, low fiber Follow up: Dr. Kenney next week Dr. Merchant in next few weeks Please call to schedule / confirm appointments Followup: Ramon Kennye MD [Primary Care Provider] - Time spent managing pt's care (in minutes): 45
[2024-11-08 08:35] VITALS: BP 141/69; TEMP 98.2
[2024-11-08] MEDS: AMOX/K CLAV 875 MG TAB PO ONE (09:11)
== END 2024-11-08 11:30 | disposition home or self-care (01) | DRG 387 ==
LOC: ER 13:03 → ERHOLD 17:28 → 4TH 17:55
PROVIDERS: ADMIT Internal Medicine; ATTEND Hospitalist
DX: K51.511 Left sided colitis with rectal bleeding (principal); E87.6 Hypokalemia; E66.9 Obesity, unspecified; I10 Essential (primary) hypertension; E78.5 Hyperlipidemia, unspecified; M19.90 Unspecified osteoarthritis, unspecified site; D72.819 Decreased white blood cell count, unspecified; Z88.2 Allergy status to sulfonamides; Z88.8 Allergy status to other drugs, medicaments and biological substances; Z68.32 Body mass index [BMI] 32.0-32.9, adult; Z90.710 Acquired absence of both cervix and uterus; Z79.02 Long term (current) use of antithrombotics/antiplatelets; Z79.899 Other long term (current) drug therapy; Z90.49 Acquired absence of other specified parts of digestive tract
CPT/HCPCS: 36415; 71045; 74177; 80048; 80053; 80076; 81001; 83605; 83690; 83735; 83880; 84484; 85025; 85027; 85610; 87324; 93005; 96361; 96365; 96375; 99285; J2270; J2405; J2543; J7030; J7799; Q9967